=== PATIENT | female | born 1995 | race Caucasian/White ===

== ENCOUNTER 2021-12-06 08:42 | Outpatient (CLI) | payer OTHER | END 2021-12-06 23:59 | disposition home or self-care (01) | LOC: LAB.N 08:42 | PROVIDERS: ATTEND Physician Assistant Medical | DX: U07.1 COVID-19 (principal) ==

== ENCOUNTER 2024-02-04 18:25 | Outpatient (CLI) | payer OTHER ==
--- NOTE | 2024-02-05 13:03 | Ultrasound Report ---
PROCEDURE: OB Anatomy Scan INDICATIONS: SUPERVISION OF NORMAL OUTSIDE/PRIOR DATING DATA: Last menstrual period (LMP): 09/11/2023. LMP-based estimated date of delivery (BRITTANY): 06/17/2024. First dating scan (date and location): 11/20/2023. Estimated date of delivery (BRITTANY) from first dating scan: 06/22/2024. The below data below was generated using the clinical BRITTANY of 06/17/2024 TECHNIQUE: Real-time scanning was performed of the fetus, with image documentation and biometric measurements. COMPARISON: None. FINDINGS: General: A single living intrauterine gestation is present. Presentation: Variable Placenta: Placental position is posterior, without previa. Amniotic fluid index: 11 point cm, within normal limits for gestational age. heart rate: 140 beats per minute. Maternal cervical canal: 4.2 cm long; normal length is 2.5 cm or more. biometrics: Biparietal diameter: 4.6 cm 20 weeks 0 days with 19th percentile Head circumference: 17.5 cm 20 weeks 0 days 10th percentile Abdominal circumference: 14.6 cm 19 weeks 6 days 16 percentile Femur length: 3.4 cm 20 weeks 5 days 17th percentile Estimated gestational age from initial scan: 20 weeks 6 days Composite gestational age from present scan: 20 weeks 0 days Estimated weight and percentile: 339 g 16th percentile Measurement variability in biometric dating: +/- 10 days from 12-20 weeks gestation, +/- 2 weeks from 20-30 weeks gestation, +/- 3 weeks at 30 weeks gestation or later. Anatomic survey: Neuro: Ventricles are normal at less than 10 mm. Cisterna magna is normal at 3-11 mm. Cerebellum i s normal in size and morphology. Nuchal skin fold: Normal at less than 6 mm between 14 and 20 weeks gestational age. Face: Nose and lips, facial profile are normal. Spine: No evidence for spina bifida. Heart: 4-chambered heart is present, with normal ventricular outflow tracts. Diaphragm: Diaphragm is intact. Stomach: Left-sided stomach is present. Kidneys: No hydronephrosis. Normal is less than 5 mm in 2nd trimester, less than 7 mm in 3rd trimester. Cord: 3 vessel cord has orthotopic insertion. Bladder: Normal in size. Extremities: All 4 extremities are visualized. IMPRESSION: Single live intrauterine with gestational age today of 20 weeks 0 days. Anatomy is within normal limits. Note decreased percentiles for biometrics as well as weight. However, given early gestati onal., Short interval imaging follow-up is recommended to evaluate for potential developing macrosomi a. Reviewed by: Sapna Colon MD on 02/05/2024 1:01 PM PDT Approved by: Sapna Colon MD on 02/05/2024 1:01 PM PDT Station ID: [id number]
== END 2024-02-04 18:26 | disposition home or self-care (01) ==
LOC: DI 18:25
PROVIDERS: ATTEND Nurse Practitioner Obstetrics & Gynecology
DX: Z34.92 Encounter for supervision of normal pregnancy, unspecified, second trimester (principal)

== ENCOUNTER 2024-03-13 10:50 | Outpatient (CLI) | payer OTHER ==
[2024-03-13 12:02] LABS: HCT - HEMATOCRIT 32.1 % (37.0-47.0); HGB - HEMOGLOBIN 10.7 g/dL (12.0-16.0); MEAN CORPUSCULAR HEMOGLOBIN 31.3 pg (27.0-31.0); MEAN CORPUSCULAR HGB CONC 33.3 g/dL (32.0-36.0); MEAN CORPUSCULAR VOLUME 93.9 fL (81.0-99.0); MEAN PLATELET VOLUME 9.3 fL (7.9-10.8); RED BLOOD COUNT 3.42 10^6/uL (4.20-5.40); RED CELL DISTRIBUTION WIDTH 12.1 % (12.0-15.0); WHITE BLOOD COUNT 10.8 x10^3/uL (4.8-10.8)
== END 2024-03-13 10:51 | disposition home or self-care (01) ==
LOC: LAB 10:50
PROVIDERS: ATTEND Nurse Practitioner Obstetrics & Gynecology
DX: Z36.9 Encounter for antenatal screening, unspecified (principal)
CPT/HCPCS: 36415; 82950; 85027

== ENCOUNTER 2024-03-25 16:07 | Outpatient (CLI) | payer OTHER ==
[2024-03-25 16:26] VITALS: BP 119/69
--- NOTE | 2024-03-26 00:35 | PROVIDER PROGRESS NOTE ---
- HPI Chief Complaint: Decreased movement Current : Current EDU 06/17/24 Gestation 28 Weeks and 0 Days 1 Para 0 Vital Signs Temperature 36.9 C 03/25/24 16:19 Heart Rate 92 03/25/24 16:19 Respiratory Rate 16 03/25/24 16:19 Blood Pressure 119/69 03/25/24 16:19 Temperature 36.9 C 03/25/24 16:19 Heart Rate 92 03/25/24 16:19 Respiratory Rate 16 03/25/24 16:19 Blood Pressure 119/69 03/25/24 16:19 O2 Saturation If not protocol: Oxygen Flow, liters/minute - Procedures OB Procedure Performed: NST Diagnosis/Indication for NST: Decreased movement NST Procedure: NST Procedure Start Date 03/25/24 Start Time 16:18 Stop Time 16:53 Vibroacoustic Stimulation Used No Patient States Movement Yes: PT states increased movement throughout appt - Plan Plan: Lizzy is a 29yo @ 28.1wks gestation by LMP c/w 9.2wk U/S who presents to [facility] with concerns for decreased movement and generally "not feeling right". She has been sick with a cold since Saturday and states this morning she developed new onset nausea. After not feeling well last and change in symptoms this morning she felt very uneasy with the addition of decreased movement. She denies vaginal bleeding, leakage of fluid or contractions. She is supported by her today. NST reactive. FHR baseline 140s, moderate variability, + accels (15 x 15), no decels No contractions appreciated via tocometry Multiple episodes of movement palpated and audibly appreciated via monitor. Pt is also able to appreciate movement at present time and feels very reassured. Plan: Pt released home with precautions. Pt has emergency contact information. Encouraged increased fluid intake and rest as she recovers from viral illness. F/u for routine visit as schedule on Saturday. Pt verbalized understanding and agrees to above plan. She denies further questions or concerns at this time. FINAL DIAGNOSIS: Decreased movement
== END 2024-03-25 17:10 | disposition home or self-care (01) ==
LOC: WFO 16:07 → FBP 16:09 → WFO 17:10
PROVIDERS: ATTEND Nurse Practitioner Obstetrics & Gynecology
DX: O36.8130 Decreased fetal movements, third trimester, not applicable or unspecified (principal); O98.513 Other viral diseases complicating pregnancy, third trimester; B34.9 Viral infection, unspecified; Z3A.28 28 weeks gestation of pregnancy
CPT/HCPCS: 59025; 99213

== ENCOUNTER 2024-03-27 09:14 | Outpatient (CLI) | payer OTHER ==
[2024-03-27 09:44] LABS: GTT GLUCOSE,FASTING 77 mg/dL (74-109)
== END 2024-03-27 09:15 | disposition home or self-care (01) ==
LOC: LAB 09:14
PROVIDERS: ATTEND Nurse Practitioner Obstetrics & Gynecology
DX: O99.810 Abnormal glucose complicating pregnancy (principal)
CPT/HCPCS: 36415; 82951; 82952

== ENCOUNTER 2024-04-29 10:13 | Outpatient (CLI) | payer OTHER ==
[2024-04-29 10:55] LABS: BASOPHILS % (AUTO) 0.3 %; EOSINOPHILS # (AUTO) 0.2 10^3/uL (0.0-0.7); EOSINOPHILS % (AUTO) 3.1 %; HCT - HEMATOCRIT 32.2 % (37.0-47.0); HGB - HEMOGLOBIN 10.4 g/dL (12.0-16.0); LYMPHOCYTES # (AUTO) 1.2 10^3/uL (1.5-3.5); LYMPHOCYTES % (AUTO) 19.2 %; MEAN CORPUSCULAR HEMOGLOBIN 29.6 pg (27.0-31.0); MEAN CORPUSCULAR HGB CONC 32.3 g/dL (32.0-36.0); MEAN CORPUSCULAR VOLUME 91.7 fL (81.0-99.0); MEAN PLATELET VOLUME 9.5 fL (7.9-10.8); MONOCYTES # (AUTO) 0.4 10^3/uL (0.0-1.0); MONOCYTES % (AUTO) 6.1 %; NEUTROPHILS # (AUTO) 4.5 10^3/uL (1.5-6.6); NEUTROPHILS % (AUTO) 70.8 %; PLT - PLATELET COUNT 242 10^3/uL (130-450); RED BLOOD COUNT 3.51 10^6/uL (4.20-5.40); RED CELL DISTRIBUTION WIDTH 12.8 % (12.0-15.0); WHITE BLOOD COUNT 6.4 x10^3/uL (4.8-10.8)
[2024-04-29 11:15] LABS: ALBUMIN 3.5 g/dL (3.2-5.5); ALBUMIN/GLOBULIN RATIO 1.3 (1.0-2.2); BILIRUBIN,TOTAL 0.3 mg/dL (0.2-1.0); CALCIUM 8.8 mg/dL (8.5-10.3); CREATININE 0.4 mg/dL (0.6-1.3); POTASSIUM 3.9 mmol/L (3.5-4.5); TOTAL PROTEIN 6.2 g/dL (6.4-8.9)
[2024-04-29 11:17] LABS: CREATININE,URINE 12.1 mg/dL; TOTAL PROTEIN,URINE TIMED < 4 mg/dL
[2024-04-29 12:38] VITALS: BP 115/68
--- NOTE | 2024-04-29 15:10 | PROVIDER PROGRESS NOTE ---
- HPI Chief Complaint: Hypertension/PIH Current : Current EDU 06/17/24 Gestation 33 Weeks and 0 Days 1 Para 0 Vital Signs Temperature 36.8 C 04/29/24 10:28 Heart Rate 92 04/29/24 10:28 Respiratory Rate 18 04/29/24 10:28 Blood Pressure 115/68 04/29/24 10:28 Temperature 36.8 C 04/29/24 10:28 Heart Rate 92 04/29/24 10:28 Respiratory Rate 18 04/29/24 10:28 Blood Pressure 106/63 04/29/24 10:35 O2 Saturation If not protocol: Oxygen Flow, liters/minute - Procedures OB Procedure Performed: NST Diagnosis/Indication for NST: Gestational Hypertension NST Procedure: NST Procedure Start Date 04/29/24 Start Time 10:21 Stop Time 11:00 Vibroacoustic Stimulation Used No Patient States Movement Yes - Plan Plan: Wen is a 29yo @ 33.0wks gestation who presents to [facility] after phoning from home reporting elevated home blood pressure. She states she was feeling "weird" at work and had a co-worker take her blood pressure at work using a wrist cuff. The values were 140/102, 140/90 and 120/94. She reports a mild headache this morning which has since resolved. She denies visual disturbances or swelling. She denies vaginal bleeding, leakage of fluid or contractions. She reports +FM. NST reactive. FHR baseline 140s, moderate variability, + accels, no decels Contractions intermittently palpate mild with soft resting tone Pt does not appreciate contractions and states she thought they were baby's movements. Contractions decreased in frequency with rest and hydration. Pre-E labs all WNL Blood pressures all normotensive here. Recommended obtaining arm BP cuff rather than wrist cuff from work. Closely reviewed Pre-E warning s/sx and when to present. Pt has emergency contact number. F/u in the office for routine OB visit as scheduled or sooner PRN. Pt verbalized understanding and agrees to above plan. She denies further questions or concerns at this time. FINAL DIAGNOSIS: Elevated blood pressure without the diagnosis of hypertension <37wks gestation
== END 2024-04-29 11:45 | disposition home or self-care (01) ==
LOC: WFO 10:13 → FBP 10:15 → WFO 11:45
PROVIDERS: ATTEND Nurse Practitioner Obstetrics & Gynecology
DX: O99.891 Other specified diseases and conditions complicating pregnancy (principal); R03.0 Elevated blood-pressure reading, without diagnosis of hypertension; Z3A.33 33 weeks gestation of pregnancy
CPT/HCPCS: 36415; 59025; 80053; 82570; 84156; 85025; 99213

== ENCOUNTER 2024-06-09 21:01 | Inpatient (IN) ==
[2024-06-09] MEDS ORDERED: OXYTOCIN/SODIUM CHLORIDE 500 ML IV PRN (21:04)
[2024-06-09] MEDS ORDERED: miSOPROStoL 200 MCG TABLET PR PRN (21:04)
[2024-06-09] MEDS ORDERED: hydrALAZINE INJ 20 MG/ML VIAL IVP PRN (21:04)
[2024-06-09] MEDS ORDERED: SODIUM CHLORIDE FLUSH 0.9% 10 ML SYRINGE IVP PRN (21:04)
[2024-06-09] MEDS ORDERED: lidocaine 1% 20 ML MDV ID PRN (21:04)
[2024-06-09] MEDS ORDERED: NIFEdipine 10 MG CAPSULE PO PRN (21:04)
[2024-06-09] MEDS ORDERED: METHYLERGONOVINE 0.2 MG/ML VIAL IM PRN (21:04)
[2024-06-09] MEDS ORDERED: miSOPROStoL 200 MCG TABLET BC PRN (21:04)
[2024-06-09] MEDS ORDERED: TRANEXAMIC ACID IN NACL 1,000 MG/100 ML BAG IV PRN (21:04)
[2024-06-09] MEDS ORDERED: OXYTOCIN 10 UNIT/ML VIAL IM PRN (21:04)
[2024-06-09] MEDS ORDERED: TERBUTALINE 1 MG/ML VIAL SUBQ PRN (21:04)
[2024-06-09] MEDS ORDERED: LABETALOL 20 MG/4 ML SYRINGE IVP PRN ×3 (21:04)
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
[2024-06-09 21:59] LABS: BASOPHILS % (AUTO) 0.3 %; EOSINOPHILS # (AUTO) 0.2 10^3/uL (0.0-0.7); EOSINOPHILS % (AUTO) 2.4 %; HCT - HEMATOCRIT 32.8 % (37.0-47.0); HGB - HEMOGLOBIN 10.6 g/dL (12.0-16.0); LYMPHOCYTES # (AUTO) 1.5 10^3/uL (1.5-3.5); LYMPHOCYTES % (AUTO) 21.7 %; MEAN CORPUSCULAR HGB CONC 32.3 g/dL (32.0-36.0); MEAN CORPUSCULAR VOLUME 89.9 fL (81.0-99.0); MEAN PLATELET VOLUME 10.4 fL (7.9-10.8); MONOCYTES # (AUTO) 0.5 10^3/uL (0.0-1.0); MONOCYTES % (AUTO) 6.5 %; NEUTROPHILS # (AUTO) 4.9 10^3/uL (1.5-6.6); NEUTROPHILS % (AUTO) 68.8 %; PLT - PLATELET COUNT 265 10^3/uL (130-450); RED BLOOD COUNT 3.65 10^6/uL (4.20-5.40); RED CELL DISTRIBUTION WIDTH 13.2 % (12.0-15.0); WHITE BLOOD COUNT 7.1 x10^3/uL (4.8-10.8)
[2024-06-09 22:13] LABS: ALBUMIN 3.7 g/dL (3.2-5.5); ALBUMIN/GLOBULIN RATIO 1.2 (1.0-2.2); BILIRUBIN,TOTAL 0.4 mg/dL (0.2-1.0); CALCIUM 9.1 mg/dL (8.5-10.3); CREATININE 0.4 mg/dL (0.6-1.3); POTASSIUM 3.5 mmol/L (3.5-4.5); TOTAL PROTEIN 6.7 g/dL (6.4-8.9)
[2024-06-09] MEDS: SODIUM CHLORIDE FLUSH 0.9% 10 ML SYRINGE IVP SCH (22:56)
[2024-06-10] MEDS: miSOPROStoL 100 MCG TABLET BC SCH (00:03)
[2024-06-10] MEDS: LACTATED RINGERS 1,000 ML IV PRN (02:03)
--- NOTE | 2024-06-10 11:35 | PHARMACY PROGRESS NOTE ---
Best Possible Medication History Admit Date and Time: 06/09/242104 Processed by: Pharmacy (Medication reconciliation completed by certified pharmacy technician, Melia) Medications reviewed in ED?: No Medication History completed: Yes Patient Interview: Completed Secondary Source(s): Insurance records [facility] Statement: As the person ultimately responsible for medication therapy, providers are able to order a medication from an existing home medication list in [facility] via the "Reconcile Routine" prior to Confirmation of that medication by software support analyst. Such practice is discouraged except when the physician, in their clinical judgment, deems that a medical need exists for a medication without regard to previous use.
[2024-06-10] MEDS: fentaNYL 100 MCG/2 ML VIAL IVP PRN (18:34)
[2024-06-10] MEDS ORDERED: BUPIVACAINE 0.25% PF 10 ML VIAL ONE (19:40)
[2024-06-10] MEDS ORDERED: LIDOCAINE 2%-EPI 1:100000 20 ML MDV ONE (19:40)
[2024-06-10] MEDS ORDERED: ROPIVACAINE 0.2% 200 MG/100 ML BAG EP ONE (19:40)
[2024-06-10] MEDS: LACTATED RINGERS 500 ML IV ONE (20:10)
[2024-06-10] MEDS ORDERED: PHENYLEPHRINE HCL 0.5 MG/5 ML AMPULE ONE (20:27)
[2024-06-10] MEDS ORDERED: ePHEDrine 50 MG/ML VIAL IVP ONE (20:27)
--- NOTE | 2024-06-10 20:59 | PROVIDER PROGRESS NOTE ---
Labor Progress Note Labor Progress Note Labor Progress Note/Additional Text: NOTE FOR 1740 on 06/10/2024 S: Breathing through contractions with the support of her and service support representative who are at the bedside. She is coping well and states the contractions are increasing in both frequency and intensity at this time. O: FHR baseline 120s, moderate variability, + accels, no decels Contractions palpate mild to moderate every 3 minutes with soft resting tone SVE 2/70/-1, midposition, medium consistency, vertex. SROM occurred at 1400 and was noted to be a moderate amount of clear fluid S/p 4 doses of 50mcg BC misoprostol for effective pre-induction cervical ripening A: 29yo @ 39.0wks gestation Suspected IUGR FHR Category I GBS negative P: Discontinue misoprostol now and initiate expectant management for labor course at this time. Intermittent heart rate auscultation Jacuzzi PRN. Nitrous oxide PRN. Epidural per maternal request. Anticipate .
--- NOTE | 2024-06-10 21:07 | ANESTHESIA PROCEDURE NOTE ---
Pre-Anesthesia VS, & Labs Diagnosis Surgical Diagnosis:: 38.6 weeks, with IUGR, induction desires labor epidural Procedure Procedure: placement of labor epidural Vitals Vital Signs: Temp Pulse Resp BP Pulse Ox 36.3 C L 91 H 15 115/77 99 06/10/24 06:00 06/10/24 06:00 06/10/24 06:00 06/10/24 06:00 06/09/24 21:11 Height (in): 5 ft 4 in Weight (kg): 65 kg Body Mass Index: 24.5 BMI Classification: Normal NPO Last Fluid Intake: currently sips Is Patient ?: Yes Lab Results Current Lab Results: Laboratory Tests 06/09/24 22:10: Blood Type Recheck B POSITIVE 06/09/24 21:38: WBC 7.1, RBC 3.65 L, Hgb 10.6 L, Hct 32.8 L, MCV 89.9, MCH 29.0, MCHC 32.3, RDW 13.2, Plt Count 265, MPV 10.4, Neut # (Auto) 4.9, Lymph # (Auto) 1.5, Lane # (Auto) 0.5, Eos # (Auto) 0.2, Baso # (Auto) 0.0, Absolute Nucleated RBC 0.00, Nucleated RBC % 0.0, Sodium 135, Potassium 3.5, Chloride 106, Carbon Dioxide 21, Anion Gap 8.0, BUN 6, Creatinine 0.4 L, Estimated GFR (MDRD) 191, Glucose 80, Calcium 9.1, Total Bilirubin 0.4, AST 15, ALT 7 L, Alkaline Phosphatase 210 H, Total Protein 6.7, Albumin 3.7, Globulin 3.0, Albumin/Globulin Ratio 1.2, Blood Type B POSITIVE, Antibody Screen NEGATIVE Lab results reviewed: Yes 06/09/24 21:38 06/09/24 21:38 Meds/Allgy Home Medications Ambulatory Orders Medication Instructions Recorded Confirmed vitamins no.159-iron 1 tab PO DAILY 05/19/24 06/10/24 fumarate 28 mg-folic acid 800 mcg tablet ( Vitamin) Allergies Allergies Allergy/AdvReac Type Severity Reaction Status Date / Time No Known Drug Allergies Allergy Verified 05/19/24 09:23 [facility] Medical History Medical History Anxiety associated with depression Family History Family History (Updated 05/19/24 @ 09:30 by Анна Mckinney MA) Maternal grandfather High blood pressure CAD (coronary artery disease) Mother Depressed Migraines Maternal grandmother Diabetes CVA (cerebral vascular accident) Sister Depressed Father Anxiety Social History Social History Smoking Status: Former smoker If you are a former smoker, when did you quit? (Date/Year): 10/04/2023 Do you dip or chew tobacco?: No Patient requests smoking cessation consult: No Substance Use: denies use POLST Patient has POLST: No Anesthesia Exam (Expanded) Exam General: Alert Dental: WNL Mouth Openin Fingerbreadth Neck Mobility: Normal Mallampati classification: II Thyromental Distance: 4-6 cm Respiratory: Lungs clear Cardiovascular: Regular rate Plan Plan Anesthesia Type: Epidural Consent for Procedure(s) Verified and Reviewed: Yes Code Status: Attempt Resuscitation ASA Classification ASA classification: 1-Healthy patient Is this case an emergency?: No
[2024-06-10] MEDS ORDERED: ONDANSETRON 4 MG/2 ML VIAL IVP PRN (21:10)
[2024-06-10] MEDS ORDERED: NALOXONE 0.4 MG/ML VIAL IVP PRN (21:10)
[2024-06-10] MEDS ORDERED: diphenhydrAMINE INJ 50 MG/ML VIAL IVP PRN (21:10)
[2024-06-10] MEDS ORDERED: ePHEDrine 50 MG/ML VIAL IVP PRN (21:10)
[2024-06-10] MEDS ORDERED: METOCLOPRAMIDE 10 MG/2 ML VIAL IVP PRN (21:10)
[2024-06-10] MEDS ORDERED: NALBUPHINE 10 MG/ML AMP IVP PRN (21:10)
[2024-06-10] MEDS ORDERED: ROPIVACAINE 0.2% 200 MG/100 ML BAG EP PRN (21:11)
[2024-06-10] MEDS: OXYTOCIN/SODIUM CHLORIDE 500 ML IV PRN (23:50)
[2024-06-11] MEDS ORDERED: SIMETHICONE CHEW 80 MG TABLET PO PRN (00:44)
--- NOTE | 2024-06-11 00:56 | DELIVERY NOTE ---
Delivery Note Delivery Comments (Free Text/Narrative) Delivery Comments (Free Text/Narrative): Labor: This 29yo @ 39.0 wks gestation presented to [facility] for induction of labor secondary to suspected IUGR by growth ultrasound at 34wks which measured 13th percentile. Cervix was closed/50/-2 and vertex. FHR demonstrated Category I pattern with intermittent periods of Category II which occurred most prevalently following placement of epidural and subsequent blood pressure drop. Overall FHR maintained moderate variability and remained reassuring throughout labor. Normal labor course. SROM occurred @ 1355 and was noted to be a moderate amount of clear fluid. She progressed to c/c/+2 at 2320. : Normal SVB of viable male infant on 06/10/2024 @ 2343. Nucal. The was placed on maternal abdomen, stimulated, dried, and placed skin to skin. 's were 8/9at 1 and 5 min respectively. Pitocin administered via IV for hemostasis. The umbilical cord was allowed to stop pulsating at which time it was doubly clamped by CNM and cut by FOB. Cord blood was obtained. 3VC. Fundal massage and gentle cord traction applied for active management of the third stage. Placenta delivered spontaneously and intact at 2358. EBL 300mL. Fourth stage: Uterine fundus firm and there is no excessive bleeding. The perineum, vagina, and cervix were inspected and found to have a 1st degree perineal laceration which was repaired using a 3-[address]-1 needle, in standard fashion and under sterile conditions. Vaginal examination following repair was performed. Tissues well approximated. initiated. Both mother and baby were left in stable condition.
[2024-06-11] MEDS: IBUPROFEN 800 MG TABLET PO PRN (01:00)
[2024-06-11] MEDS: ACETAMINOPHEN 500 MG TABLET PO PRN (01:01)
[2024-06-11] MEDS: DOCUSATE SODIUM 100 MG CAPSULE PO SCH (09:00)
[2024-06-11] MEDS: HYDROCORTISONE 1% CREAM 28 GM TUBE TOP PRN (09:00)
[2024-06-11] MEDS: WITCH HAZEL/GLYCERIN 1 PAD TOP PRN (09:17)
--- NOTE | 2024-06-11 14:10 | PROVIDER PROGRESS NOTE ---
Subjective Subjective Subjective: S: Bonding well with baby. without difficulty. Pain is well controlled with oral medications. Bleeding decreased and is light. She is urinating without difficulty. Has not yet had BM. Jerome is supportive at the bedside. O: Heart RRR w/o M/G/R, lungs CTAB, abdomen soft and nontender with fundus firm at U, perineum intact, light lochia rubra, bilateral LE's trace edema A: 29yo -->P1 PPD#1 s/p TSVD viable male Normal recovery P: Continue routine care and medications. Evaluate for discharge home tomorrow Current Medications Current Medications Current Medications: Current Medications Generic Name Dose Route Start Last Admin Trade Name Freq PRN Reason Stop Dose Admin Acetaminophen 1,000 mg 06/11/24 00:44 06/11/24 08:59 Acetaminophen 500 Mg Tablet PO 1,000 mg Q8HR PRN Administration Mild Pain or Fever>38C(100.4F) Diphenhydramine HCl 12.5 - 25 mg 06/10/24 21:10 Diphenhydramine Inj 50 Mg/Ml Vial IVP Q6HR PRN ITCHING Docusate Sodium 100 mg 06/11/24 09:00 06/11/24 09:00 Docusate Sodium 100 Mg Capsule PO 100 mg BID JUAN DAVID Administration Ephedrine Sulfate 5 mg 06/10/24 21:10 Ephedrine 50 Mg/Ml Vial IVP Q5M PRN For SBP<100;give until SBP>100 Fentanyl 50 mcg 06/09/24 21:04 06/10/24 18:34 Fentanyl 100 Mcg/2 Ml Vial IVP 50 mcg Q1H PRN Administration Severe Pain (score 7-10) Hydralazine HCl 5 - 10 mg 06/09/24 21:04 Hydralazine Inj 20 Mg/Ml Vial IVP Q20M PRN SBP> or= 160 OR DBP> or= 110 Protocol Hydrocortisone 1 applic 06/11/24 00:44 06/11/24 09:00 Hydrocortisone 1% Cream 28 Gm Tube TOP 1 tube QID PRN Administration PERINEAL REPAIR Lactated Ringer's 500 mls @ 999 mls/hr 06/09/24 21:04 06/10/24 10:47 Lr IV Infused PRN PRN Infusion distress Oxytocin/Sodium Chloride 500 mls @ 999 mls/hr 06/09/24 21:04 Pitocin/Sodium Chloride IV PRN PRN POST- HEMORR PREVENTION Protocol 999 MILLIUNIT/MIN Tranexamic Acid 1,000 mg in 100 mls @ 600 mls/hr 06/09/24 21:04 Tranexamic 1,000 Mg/100ml-Nacl IV Q30M PRN EBL >1200mL and within 3hr Ropivacaine 200 mg in 100 mls @ 0 mls/hr 06/10/24 21:11 Naropin 0.2% EP PRN PRN PAIN Protocol Per Protocol Oxytocin/Sodium Chloride 500 mls @ 999 mls/hr 06/11/24 00:44 06/10/24 23:50 Pitocin/Sodium Chloride IV 999 milliunit/min PRN PRN 999 mls/hr POST- HEMORR PREVENTION Administration Protocol 999 MILLIUNIT/MIN Ibuprofen 800 mg 06/11/24 00:44 06/11/24 08:59 Ibuprofen 800 Mg Tablet PO 800 mg Q8HR PRN Administration Moderate Pain (Level 4-6) Labetalol HCl 20 - 80 mg 06/09/24 21:04 Labetalol 20 Mg/4 Ml Syringe IVP Q10M PRN SBP> or= 160 OR DBP> or= 110 Protocol Labetalol HCl 20 mg 06/09/24 21:04 Labetalol 20 Mg/4 Ml Syringe IVP .ONCE PRN SBP> or= 160 OR DBP> or= 110 Protocol Labetalol HCl 20 - 40 mg 06/09/24 21:04 Labetalol 20 Mg/4 Ml Syringe IVP Q10M PRN SBP> or= 160 OR DBP> or= 110 Protocol Lidocaine HCl 20 ml 06/09/24 21:04 Lidocaine 1% 20 Ml Mdv ID 06/12/24 21:05 .ONCE PRN PERINEAL REPAIR Methylergonovine Maleate 0.2 mg 06/09/24 21:04 Methylergonovine 0.2 Mg/Ml Vial IM .ONCE PRN Hemorrhage Metoclopramide HCl 10 mg 06/10/24 21:10 Metoclopramide 10 Mg/2 Ml Vial IVP Q6HR PRN Nausea / Vomiting Misoprostol 600 mcg 06/09/24 21:04 Misoprostol 200 Mcg Tablet BC .ONCE PRN Hemorrhage Misoprostol 800 mcg 06/09/24 21:04 Misoprostol 200 Mcg Tablet KS .ONCE PRN Hemorrhage Misoprostol 50 mcg 06/10/24 00:00 06/10/24 18:47 Misoprostol 100 Mcg Tablet BC Not Given Q4H JUAN DAVID Nalbuphine HCl 2.5 - 5 mg 06/10/24 21:10 Nalbuphine 10 Mg/Ml Amp IVP Q4H PRN ITCHING Naloxone HCl 0.1 mg 06/10/24 21:10 Naloxone 0.4 Mg/Ml Vial IVP Q2M PRN RR<8 Nifedipine 10 - 20 mg 06/09/24 21:04 Nifedipine 10 Mg Capsule PO Q20M PRN SBP> or= 160 OR DBP> or= 110 Protocol Ondansetron HCl 4 mg 06/10/24 21:10 Ondansetron 4 Mg/2 Ml Vial IVP Q6HR PRN Nausea / Vomiting Oxytocin 10 unit 06/09/24 21:04 Oxytocin 10 Unit/Ml Vial IM .ONCE PRN Step One if no IV access. Simethicone 80 mg 06/11/24 00:44 Simethicone Chew 80 Mg Tablet PO TID PRN Gas Sodium Chloride 10 ml 06/09/24 21:04 Sodium Chloride Flush 0.9% 10 Ml Syringe IVP PRN PRN NEEDED PER PROVIDER ORDERS Sodium Chloride 10 ml 06/09/24 22:00 06/10/24 09:00 Sodium Chloride Flush 0.9% 10 Ml Syringe IVP 5 ml Q8H JUAN DAVID Administration Terbutaline Sulfate 0.25 mg 06/09/24 21:04 Terbutaline 1 Mg/Ml Vial SUBQ .ONCE PRN Tachystole Witch Iliana/Glycerin 1 pad 06/11/24 00:44 06/11/24 09:17 Witch Iliana/Glycerin 1 Pad TOP 1 pad PRN PRN Administration PERINEAL REPAIR Objective Vital Signs/Intake & Output Vital Signs: Vital Signs x48h Temp Pulse Resp BP Pulse Ox 06/11/24 09:03 72 17 115/69 100 06/11/24 09:00 36.5 C Intake & Output: Intake & Output 06/09/24 06/10/24 06/11/24 06/12/24 05:59 05:59 05:59 05:59 Intake Total 1650 / 1650 Output Total 1000 / 1000 Balance 650 / 650 Weight (kg) 65.771 kg 65 kg Lab Results 06/09/24 21:38 06/09/24 21:38
[2024-06-12 06:31] VITALS: O2SAT 100
--- NOTE | 2024-06-12 10:39 | Discharge Summary ---
Discharge Summary Admit Date: 06/09/24 Discharge Date: 06/12/24 HOSPITAL COURSE Hospital Course: Date of Admission: Date of Discharge: 06/12/2024 Diagnosis on Admission: 1. 29yo @ 38.6wks gestation 2. Pre-induction cervical ripening with misoprostol in anticipation for induction of labor 3. FHR Category I 4. GBS negative Diagnosis on Discharge: 1. 29yo PPD#2 s/p TSVD viable male infant 2. 3. Normal recovery Brief History: She is a patient of [facility] who presented on 06/09/2024 for pre-induction cervical ripening with misoprostol in anticipation for induction of labor. She received 4 total doses of 50mcg BC misoprostol at which time she progressed into spontaneous labor. SROM occurred and was noted to be a moderate amount of clear fluid. Epidural was placed per maternal request. She progressed to spontaneously deliver a viable male on 06/10/2024 @ 2343. Apgars were 8/9 at 1 and 5 minutes respectively. She was noted to have a 1st degree perineal laceration which was repaired using a 3-[address]-1 needle in standard fashion and under sterile conditions. EBL 300mL. She has been doing well in her course. She is ambulating and tolerating a regular diet. She is urinating without difficulty and her lochia is normal. Her pain is well controlled with oral medications. She will be discharged home today on day #2 with instructions to continue taking her vitamin while and to continue taking ibuprofen and tylenol over the counter as needed for pain management. She intends to follow up with myself in 1 week for routine visit or sooner if needed. She has been given precautions to call if she has any worsening fevers, chills, abdominal pain, increased vaginal bleeding or foul smelling vaginal lochia. Physical exam: Heart RRR w/o M/G/R, lungs CTAB, abdomen soft and nontender, fundus firm at U-1, bilateral LE's trace edema, mood is good. ALLERGIES Allergies Allergy/AdvReac Type Severity Reaction Status Date / Time No Known Drug Allergies Allergy Verified 05/19/24 09:23 MEDICATIONS Ambulatory Orders Medication Instructions Recorded Confirmed vitamins no.159-iron 1 tab PO DAILY 05/19/24 06/10/24 fumarate 28 mg-folic acid 800 mcg tablet ( Vitamin) LABS 06/09/24 21:38 06/09/24 21:38 Discharge Plan Discharge Patient Disposition: 01 Home, Self Care Prescriptions: Continued Vitamin 28 mg iron- 800 mcg tablet 1 tab PO DAILY Print Language: Mauritian Patient Instructions: Vaginal After Follow-up Care: Aaron Way MD [Primary Care Provider] -
--- NOTE | 2024-06-12 10:43 | Labor Flowsheet ---
Labor Flowsheet Datetime Report Generated by CPN: 06/12/2024 10:43 Datetime: 06/12/2024 07:49 VITAL SIGNS NBP Sys/Brittney/Mean (mmHg): 114 : 74 : 83 Pulse: 73 Datetime: 06/11/2024 04:17 Temperature Route: Oral Datetime: 06/11/2024 01:37 Respirations: 16 Temperature (C): 36.7 PAIN Pain Scale: 2 Datetime: 06/10/2024 23:58 Stage of : Recovery Datetime: 06/10/2024 23:52 LaborFlag: Labor Datetime: 06/10/2024 23:40 UTERINE ACTIVITY Monitor Mode: Palpation Frequency (min): 1-3 Quality: Strong Duration (sec): 50 Pattern: Normal: <= 5 Contractions in 10 Minutes Resting Tone (Palpate): Relaxed FHR Baseline Rate : 130 Variability: Marked >25 bpm Accelerations: 15X15 Decelerations: Variable Datetime: 06/10/2024 23:25 Communication Comments: pushing effectively Datetime: 06/10/2024 23:20 VAGINAL EXAM Dilatation (cm): 10.0 Station: 2 Exam by: Montez Datetime: 06/10/2024 23:07 Category: Category II Datetime: 06/10/2024 23:06 COMMUNICATION Communication: RN at Bedside; Provider at Bedside Datetime: 06/10/2024 22:34 Amniotic Fluid Color: Clear Datetime: 06/10/2024 22:33 Patient Position/Activity: Left Lateral Datetime: 06/10/2024 22:23 Vaginal Exam Comments: attempte push Datetime: 06/10/2024 22:00 ASSESSMENT A Monitor Mode: External US Datetime: 06/10/2024 21:58 Provider Notified (Name): A Montez Notification Reason: Status Update; Labor Status Datetime: 06/10/2024 21:57 Effacement (%): 100 Vaginal Bleeding: Normal Show Cervix, Consistency: Soft Cervix, Position: Anterior Datetime: 06/10/2024 20:38 Membrane Status: Ruptured Amniotic Fluid Amount: Small Amniotic Fluid Odor: Normal I/O Interventions: Morales Cath Inserted Datetime: 06/10/2024 20:33 FHR Baseline Changes: Bradycardia Membranes Ruptured Date/Time: 06/10/2024 13:54 Datetime: 06/10/2024 20:30 Medication Comments: S.Montgomer BIZTALK ARCHITECT at BS ephedrine 15mg given to increase bp Anesthesia Level Check: T11 Datetime: 06/10/2024 20:24 Actions for Decelerations: Side to Side; IV Bolus Datetime: 06/10/2024 20:10 Anesthesia Comments: bolus Datetime: 06/10/2024 20:05 SpO2 (%): 97 Datetime: 06/10/2024 20:00 Epidural Procedure: Cath Placed Datetime: 06/10/2024 19:43 PROCEDURE TIME OUT Procedure Verify: Correct Patient Identity; Correct Side and Site are Marked; Accurate Procedure Co nsent Form; Agreement on Procedure to be Done; Correct Patient Position; Relevant Images and Results are Properly Labeled and Displayed; Addressed Need to Administer Antibiotics or Fluids for Irrigation ; Safety Precautions Based on Patient History or Medication Use ANESTHESIA Anesthesia Plans: Epidural Epidural Positioning: Sitting Datetime: 06/10/2024 19:08 Monitor Interventions for UA: [place] Adjusted Datetime: 06/10/2024 18:50 Pain Assessment Comments: Pt using nitrous Datetime: 06/10/2024 18:34 MEDICATIONS Analgesics/Sedatives: Fentanyl (mcg) @ 50 mcg Datetime: 06/10/2024 18:12 Contraction Comments: per palpation Comments: Pt requesting IA, doppler not available and EFM used Datetime: 06/10/2024 18:08 Pain Coping: Crying Comfort Measures: Breathing/Relaxation; Coaching; Family Support; [employer] Mdm Developer Support Datetime: 06/10/2024 17:17 Patient Care Comments: Pt laboring on toilet Datetime: 06/10/2024 15:17 Pain Relief Measures: Comfort Measures Datetime: 06/10/2024 14:56 Pain Presence: Intermittent Pain Type: Cramping; Contraction Pain Location: Abdomen; Back Datetime: 06/10/2024 13:54 Membranes Rupture Method: Spontaneous Datetime: 06/10/2024 13:29 Monitor Interventions for FHR: Ultrasound Adjusted Datetime: 06/10/2024 11:17 PATIENT CARE IV/Blood Work: IV Saline Locked Datetime: 06/10/2024 09:51 Cervical Ripening Agents: Cytotec @ Datetime: 06/10/2024 08:00 MATERNAL ASSESSMENT Level of Consciousness: Alert DTR's/Clonus: DTRs 1+; No Clonus Headache: Denies Breath Sounds, Left: Clear and Equal Breath Sounds, Right: Clear and Equal Nausea/Vomiting: Denies RUQ Epigastric Pain: Denies
== END 2024-06-12 10:15 | disposition home or self-care (01) | DRG 807 ==
LOC: WFO 21:01 → FBP 21:02
PROVIDERS: ADMIT Nurse Practitioner Obstetrics & Gynecology; ATTEND Nurse Practitioner Obstetrics & Gynecology

== ENCOUNTER 2025-06-12 07:56 | Inpatient (IN) ==
[2025-06-12] MEDS: SODIUM CHLORIDE FLUSH 0.9% 10 ML SYRINGE IVP SCH (08:30)
[2025-06-12] MEDS ORDERED: CARBOPROST TROMETHAMINE 250 MCG/ML VIAL IM PRN (08:59)
[2025-06-12] MEDS ORDERED: METHYLERGONOVINE 0.2 MG/ML VIAL IM PRN (08:59)
[2025-06-12] MEDS ORDERED: fentaNYL 100 MCG/2 ML VIAL IVP PRN (08:59)
[2025-06-12] MEDS ORDERED: TRANEXAMIC ACID IN NACL 1,000 MG/100 ML BAG IV PRN (08:59)
[2025-06-12] MEDS ORDERED: OXYTOCIN/SODIUM CHLORIDE 500 ML IV PRN ×2 (08:59→18:41)
[2025-06-12] MEDS ORDERED: hydrALAZINE INJ 20 MG/ML VIAL IVP PRN ×3 (08:59→18:41)
[2025-06-12] MEDS ORDERED: OXYTOCIN 10 UNIT/ML VIAL IM PRN (08:59)
[2025-06-12] MEDS ORDERED: DOCUSATE SODIUM 100 MG CAPSULE PO PRN (08:59)
[2025-06-12] MEDS ORDERED: METOCLOPRAMIDE 10 MG TABLET PO PRN (08:59)
[2025-06-12] MEDS ORDERED: CALCIUM CARBONATE CHEW 500 MG TABLET PO PRN ×2 (08:59→18:50)
[2025-06-12] MEDS ORDERED: SODIUM CHLORIDE FLUSH 0.9% 10 ML SYRINGE IVP PRN (08:59)
[2025-06-12] MEDS ORDERED: ONDANSETRON ODT 4 MG TABLET PO PRN (08:59)
[2025-06-12] MEDS ORDERED: TERBUTALINE 1 MG/ML VIAL SUBQ PRN (08:59)
[2025-06-12] MEDS ORDERED: ACETAMINOPHEN 500 MG TABLET PO PRN (08:59)
[2025-06-12] MEDS ORDERED: LABETALOL 20 MG/4 ML SYRINGE IVP PRN ×5 (08:59→18:41)
[2025-06-12 09:23] LABS: ALT ALANINE AMINOTRANSFERASE 8.0 IU/L (10-60); AST ASPARTATE AMINOTRANSFERASE 16.0 IU/L (10-42); BUN - BLOOD UREA NITROGEN 8.0 mg/dL (6-20); CARBON DIOXIDE - CO2 22.0 mmol/L (21-32); CREATININE 0.4 mg/dL (0.6-1.3); GFR - MDRD 190.0 (>89)
[2025-06-12 09:36] LABS: HCT - HEMATOCRIT 33.8 % (37.0-47.0); HGB - HEMOGLOBIN 10.9 g/dL (12.0-16.0); MEAN PLATELET VOLUME 10.7 fL (7.9-10.8); NRBC ABSOLUTE COUNT (AUTO) 0.00 x10^3/uL; NUCLEATED RED BLOOD CELLS AUTO 0.0 /100WBC; PLT - PLATELET COUNT 244 10^3/uL (130-450); RED CELL DISTRIBUTION WIDTH 13.0 % (12.0-15.0)
[2025-06-12] MEDS: LACTATED RINGERS 1,000 ML IV PRN (09:59)
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
[2025-06-12 10:05] LABS: ESTIMATED AVERAGE GLUCOSE 105 mg/dL (70-100); HEMOGLOBIN A1c% 5.3 % (4.27-6.07)
--- OUTSIDE RECORDS SUMMARY | 2025-06-12 10:30 | EXTERNAL MEDICAL SUMMARY RPT | Continuity of Care Document ---
Author Organization [facility] Address [address] [place] [id number] Phone Problems date description facility 2025-03-11 13:06 Abnormal glucose complicating p [email or web address] 2025-03-14 10:01 Abnormal glucose complicating p [email or web address] 2025-03-15 00:01 Abnormal glucose complicating p [email or web address] 2025-03-25 14:11 Encounter for immunization [facility] 2025-03-28 11:37 Gestational diabetes mellitus in , diet controlled [facility] 2025-03-29 08:42 Encounter for immunization [email or web address] 2025-03-29 08:43 Gestational diabetes mellitus in , diet controlled [facility] 2025-03-29 08:43 Encounter for immunization [email or web address] 2025-03-29 08:43 27 weeks gestation of 5 [employer] 2025-04-02 09:47 Gestational diabetes mellitus in , diet controlled [facility] 2025-04-02 09:51 Gestational diabetes mellitus in , diet controlled [facility] 2025-04-02 11:21 Gestational diabetes mellitus in , diet controlled [facility] 2025-04-06 19:56 Gestational diabetes mellitus in , diet controlled [facility] 2025-04-07 00:03 Gestational diabetes mellitus in , diet controlled [facility] 2025-05-07 12:03 Gestational diabetes mellitus in , diet controlled [email or web address] 2025-05-13 15:19 Other specified noninflammatory disorders of vagina [email or web address] 2025-05-13 15:19 Encounter for screen ing for infections with a predominantly sexual mode of transmission [email or web address] 2025-05-13 15:19 Encounter for screeni ng for Streptococcus B [email or web address] 2025-05-13 15:20 False labor before 3 7 completed weeks of gestation, unspecified [email or web address] 2025-05-13 15:20 Encounter for screeni ng for Streptococcus B [facility] 2025-05-13 15:48 False labor before 3 7 completed weeks of gestation, unspecified trimester [facility] 2025-05-13 15:48 Encounter for screeni ng for Streptococcus B [facility] 2025-05-14 00:05 Other specified noninflammatory disorders of vagina [facility] 2025-05-14 00:05 False labor before 3 7 completed weeks of gestation, unspecified trimester [email or web address] 2025-05-14 00:05 Encounter for screen ing for infections with a predominantly sexual mode of transmission [email or web address] 2025-05-14 00:05 Encounter for screeni ng for Streptococcus B [facility] 2025-05-17 06:54 False labor before 3 7 completed weeks of gestation, unspecified trimester [email or web address] 2025-05-17 06:54 Encounter for screeni ng for Streptococcus B [facility] 2025-05-17 08:25 False labor before 3 7 completed weeks of gestation, unspecified trimester [facility] 2025-05-17 08:25 False labor before 3 7 completed weeks of gestation, third trimester [facility] 2025-05-17 08:25 Encounter for screeni ng for Streptococcus B [facility] 2025-05-17 08:26 False labor before 3 7 completed weeks of gestation, unspecified trimester [email or web address] 2025-05-17 08:26 False labor before 3 7 completed weeks of gestation, third trimester [email or web address] 2025-05-17 08:26 Encounter for screen ing for infections with a predominantly sexual mode of transmission [email or web address] 2025-05-17 08:26 Encounter for screeni ng for Streptococcus B [facility] 2025-05-17 08:26 34 weeks [facility] 2025-05-17 10:50 Perianal venous thrombosis [facility] 2025-05-19 06:14 Encounter for superv ision of other normal , third trimester [email or web address] 2025-05-19 08:53 False labor before 3 7 completed weeks of gestation, unspecified trimester [email or web address] 2025-05-19 08:53 Other specified dise ases and conditions complicating [facility] 2025-05-19 08:53 Encounter for screeni ng for Streptococcus B [facility] 2025-05-21 06:26 False labor before 3 7 completed weeks of gestation, third trimester [email or web address] 2025-05-24 08:16 Gestational diabetes mellitus in , diet controlled [facility] 2025-05-24 08:16 35 weeks gestation of [facility] 2025-06-07 08:39 Encounter for superv ision of other normal , third trimester [facility] 2025-06-07 08:39 37 weeks [facility] Results/Labs test date facility value unit notes Result panel 1 GLUCOSE TOLERANCE 3HR 2025-03-14 10:16 [facility] (missing) (missing) GLU FAST 75 mg/dL Col Time:1019 GLU 1H 172 mg/dL Col Time:1119 GLU 2H 174 mg/dL Col Time:1220 GLU 3H 143 mg/dL Col Time:1319 DOSE 100 g Col Time:1019 Glucose Concentration Guidelines Fasting <95 mg/dL 1 hr post challenge <180 mg/dL 2 hr post challenge <155 mg/dL 3 hr post challenge <140 mg/dL Glucose concentration greater than or equal to these valuesat TWO or more time points is a positive test. Reference: [facility] Result panel 2 GROUP B STREP PCR 2025-05-13 15:19 [email or web address] NEGATIVE (missing) (missing) NEISSERIA GONORRHOEAE DNA 2025-05-13 15:19 [employer] NEGATIVE (missing) (missing) BACTERIAL VAGINOSIS DNA 2025-05-13 15:19 [email or web address] NEGATIVE (missing) Detection of marker combinations related to normal vaginal roxanne. ZULEYKA GLABRATA DNA 2025-05-13 15:19 [email or web address] NEGATIVE (missing) No Zuleyka glabrata Detected Z[facility] GROUP DNA 2025-05-13 15:19 [email or web address] NEGATIVE (missing) No Zuleyka group Detected (Zuleyka albicans and/or Zuleyka tropicalis and/or Zuleyka parapsilosis and/or Zuleyka dubliniensis) ZULEYKA KRUSEI DNA 2025-05-13 15:19 [email or web address] NEGATIVE (missing) No Zuleyka krusei Detected TRICHOMONAS VAGINALIS DNA 2025-05-13 15:19 [facility] NEGATIVE (missing) No Trichomonas vaginalis Detected CHLAMYDIA TRACHOMATIS DNA 2025-05-13 15:19 [facility] NEGATIVE (missing) VAGINAL TRICHOMONAS VAGINALIS DNA 2025-05-13 15:19 [facility] TNP (missing) (missing) Result panel 3 WBC,URINE 2025-05-13 17:45 [facility] 0-3 /hpf (missing) UROBILINOGEN,URI NE 2025-05-13 17:45 [facility] 0.2 (NORMAL) e.u./dl (missing) SPECIFIC GRAVITY,URINE 2025-05-13 17:45 [facility] 1.015 (missing) (missing) KETONES,URINE (UA) 2025-05-13 17:45 [facility] 15 mg/dl (missing) PH,URINE 2025-05-13 17:45 [facility] 6.5 ph (missing) CLARITY,URINE 2025-05-13 17:45 [facility] CLEAR (missing) (missing) SQUAMOUS EPITHELIAL CELL,UR 2025-05-13 17:45 [facility] FEW Squamous (missing) (missing) BACTERIA,URINE 2025-05-13 17:45 [facility] Few /hpf (missing) LEUKOCYTE ESTERASE, URINE 2025-05-13 17:45 [facility] NEGATIVE (missing) (missing) NITRITE,URINE 2025-05-13 17:45 [facility] NEGATIVE (missing) (missing) OCCULT BLOOD,URINE 2025-05-13 17:45 [facility] NEGATIVE (missing) (missing) BILIRUBIN,URINE 2025-05-13 17:45 [facility] NEGATIVE (missing) Bilirubin can be influenced by color interference. Please correlate positive results with clinical presentation GLUCOSE, URINE (UA) 2025-05-13 17:45 [facility] NEGATIVE mg/dl (missing) PROTEIN,URINE 2025-05-13 17:45 [facility] NEGATIVE mg/dl (missing) UR CULTURE IF IND 2025-05-13 17:45 [facility] NOT INDICATED (missing) (missing) RBC,URINE 2025-05-13 17:45 [facility] None Seen /hpf (missing) COLOR,URINE 2025-05-13 17:45 [facility] YELLOW (missing) URINE CLEAN CATCH Result panel 4 NUCLEATED RED BLOOD CELLS AUTO 2025-06-12 08:30 [facility] 0.0 /100wbc (missing) BASOPHILS # (AUTO) 2025-06-12 08:30 [facility] 0.0 10 3/ul (missing) NRBC ABSOLUTE COUNT (AUTO) 2025-06-12 08:30 [facility] 0.00 x10 3/ul (missing) EOSINOPHILS # (AUTO) 2025-06-12 08:30 [facility] 0.2 10 3/ul (missing) MONOCYTES # (AUTO) 2025-06-12 08:30 [facility] 0.4 10 3/ul (missing) BILIRUBIN,TOTAL 2025-06-12 08:30 [facility] 0.4 mg/dl As of February 2023 testing method has changed, this may include reference ranges. CREATININE 2025-06-12 08:30 [facility] 0.4 mg/dl As of February 2023 testing method has changed, this may include reference ranges. ALBUMIN/GLOBULIN RATIO 2025-06-12 08:30 [facility] 1.2 (missing) (missing) LYMPHOCYTES # (AUTO) 2025-06-12 08:30 [facility] 1.4 10 3/ul (missing) MEAN PLATELET VOLUME 2025-06-12 08:30 [facility] 10.7 fl (missing) HGB - HEMOGLOBIN 2025-06-12 08:30 [facility] 10.9 g/dl (missing) ESTIMATED AVERAGE GLUCOSE 2025-06-12 08:30 [facility] 105 mg/dl (missing) CHLORIDE 2025-06-12 08:30 [facility] 107 mmol/l As of February 2023 testing method has changed, this may include reference ranges. RED CELL DISTRIBUTION WIDTH 2025-06-12 08:30 [facility] 13.0 % (missing) SODIUM 2025-06-12 08:30 [facility] 136 mmol/l (missing) AST ASPARTATE AMINOTRANSFERASE 2025-06-12 08:30 [facility] 16 iu/l As of February 2023 testing method has changed, this may include reference ranges. ALKALINE PHOSPHATASE 2025-06-12 08:30 [email or web address] 172 iu/l As of February 2023 testing method has changed, this may include reference ranges. GFR - MDRD 2025-06-12 08:30 [email or web address] 190 (missing) The IDMS-traceable MDRD Study Equation has been validated extensively in and populations between the ages of 18 and 70 with impaired kidney function (eGFR < 60 mL/min/1.73m2) and has shown good performance for patients with all common causes of kidney disease. Although this equation has not been validated for patients older than 70, an MDRD-derived eGFR may still be a useful tool for providers caring for patients older than 70. References: http://www.nkdep. nih.gov/lab-evalu ation/gfr/creatin ine-stand ardization, last updated October 2011. GLOBULIN 2025-06-12 08:30 [email or web address] 2.9 g/dl (missing) CARBON DIOXIDE - CO2 2025-06-12 08:30 [email or web address] 22 mmol/l As of February 2023 testing method has changed, this may include reference ranges. PLT - PLATELET COUNT 2025-06-12 08:30 [email or web address] 244 10 3/ul (missing) MEAN CORPUSCULAR HEMOGLOBIN 2025-06-12 08:30 [email or web address] 29.1 pg (missing) ALBUMIN 2025-06-12 08:30 [email or web address] 3.5 g/dl As of February 2023 testing method has changed, this may include reference ranges. RED BLOOD COUNT 2025-06-12 08:30 [email or web address] 3.75 10 6/ul (missing) POTASSIUM 2025-06-12 08:30 [email or web address] 3.8 mmol/l As of February 2023 testing method has changed, this may include reference ranges. NEUTROPHILS # (AUTO) 2025-06-12 08:30 [email or web address] 3.9 10 3/ul (missing) MEAN CORPUSCULAR HGB CONC 2025-06-12 08:30 [email or web address] 32.2 g/dl (missing) HCT - HEMATOCRIT 2025-06-12 08:30 [email or web address] 33.8 % (missing) HEMOGLOBIN A1c% 2025-06-12 08:30 [email or web address] 5.3 % The [place] [employer] (ADA) has made the following recommendations: Monitoring HbA1c in Diabetic Patients: A1c (NGSP%) Goal <8 Less Stringent Goal <7 General Goal <6.5 More Stringent Goal Diagnosis of Diabetes: A1c (NGSP%) Goal >6.5 Diabetic 5.7-6.4 Pre-Diabetic <5.7 Non-Diabetic WHITE BLOOD COUNT 2025-06-12 08:30 [email or web address] 5.9 x10 3/ul (missing) TOTAL PROTEIN 2025-06-12 08:30 [email or web address] 6.4 g/dl As of February 2023 testing method has changed, this may include reference ranges. ANION GAP 2025-06-12 08:30 [email or web address] 7.0 (missing) (missing) GLUCOSE 2025-06-12 08:30 [email or web address] 72 mg/dl As of February 2023 testing method has changed, this may include reference ranges. ALT ALANINE AMINOTRANSFERASE 2025-06-12 08:30 [email or web address] 8 iu/l As of February 2023 testing method has changed, this may include reference ranges. BUN - BLOOD UREA NITROGEN 2025-06-12 08:30 [email or web address] 8 mg/dl As of February 2023 testing method has changed, this may include reference ranges. CALCIUM 2025-06-12 08:30 [email or web address] 8.3 mg/dl As of February 2023 testing method has changed, this may include reference ranges. MEAN CORPUSCULAR VOLUME 2025-06-12 08:30 [email or web address] 90.1 fl (missing) Social History date description facility
--- NOTE | 2025-06-12 11:30 | PROVIDER PROGRESS NOTE ---
Labor Progress Note Labor Progress Note Labor Progress Note/Additional Text: Induction initiated with misoprostol. Patient received single dose of 50mcg BC @0922 with a category I tracing and FHT 120-125. She then had a prolonged deceleration x5 minutes at about 0955 with resolution to baseline and return to category I tracing. The next hour she had a few intermittent variables but the tracing remained overall, reassuring. Then the last 45 minutes she has had x3 late decelerations lasting x2 minutes each with an increasing baseline. Decelerations not occuring with each contraction. These decelerations were followed by a period of tachycardia which appears to be slowly returning to a baseline of 150's. I've ordered a stat ultrasound to evaluate for position of cord. She's stating that the contractions are more painful but she's able to breath through them. Now farhad q 3-5 minutes. Reviewed distress and plan for ultrasound with patient and nursing team. Nursing interventions to include hands and knees and other positional changes as well as fluid bolus.
--- NOTE | 2025-06-12 12:00 | PHARMACY PROGRESS NOTE ---
Best Possible Medication History Admit Date and Time: 06/12/25 0900 Home Medications Medication Instructions Recorded Confirmed Type vitamins no.159-iron 1 tab PO DAILY 05/19/24 06/12/25 History fumarate 28 mg-folic acid 800 mcg tablet ( Vitamin) blood sugar diagnostic #100 ea 03/16/25 06/03/25 Rx blood-glucose meter #1 ea 03/16/25 06/03/25 Rx lancets #200 ea 03/16/25 06/03/25 Rx lidocaine 5 % topical ointment 1 applic topical QID AZ N pain #50 05/17/25 06/12/25 Rx grams calcium carbonate 500 mg PO QID PRN heartburn 06/12/25 06/12/25 History Processed by: Pharmacy Medications reviewed in ED?: No Medication History completed: Yes [facility] Statement: As the person ultimately responsible for medication therapy, providers are able to order a medication from an existing home medication list in [facility] via the "Reconcile Routine" prior to Confirmation of that medication by child support officer. Such practice is discouraged except when the physician, in their clinical judgment, deems that a medical need exists for a medication without regard to previous use.
--- NOTE | 2025-06-12 12:26 | PROVIDER PROGRESS NOTE ---
Subjective Subjective Subjective: Dr. Ruano, [facility] O[facility] updated on FHR changes and ultrasound prelimary report. Discussed as well the trending tachycardia and possible resolution ot baseline of 155. Reviewed plan of care to stop all future doses of misoprostol and discussed oxytocin as next intervention or AROM, but hopeful that labor progresses from here and less intervention is required. I have recommend epidural prior to AROM in the event that there is unresolved distress and an urgent operative intervention is needed. Dr. Ruano reviewed that she is 20 minutes away and would like to be called with as much time as we can give her. Will give operative team a heads up re episodes of distress as well. Current Medications Current Medications Current Medications: Current Medications Generic Name Dose Route Start Last Admin Trade Name Freq PRN Reason Stop Dose Admin Acetaminophen 1,000 mg 06/12/25 08:59 Acetaminophen 500 Mg Tablet PO Q8HR PRN Mild Pain or Fever>38C(100.4F) Calcium Carbonate/Glycine 1,000 mg 06/12/25 08:59 Calcium Carbonate Chew 500 Mg Tablet PO Q6HR PRN Heartburn Carboprost Tromethamine 250 mcg 06/12/25 08:59 Carboprost Tromethamine 250 Mcg/Ml Vial IM .ONCE PRN Hemorrhage Diphenhydramine HCl 25 mg 06/12/25 08:59 Diphenhydramine Inj 50 Mg/Ml Vial IVP Q6H PRN Allergy Symptoms Docusate Sodium 200 mg 06/12/25 08:59 Docusate Sodium 100 Mg Capsule PO BID PRN Constipation Fentanyl 50 mcg 06/12/25 08:59 Fentanyl 100 Mcg/2 Ml Vial IVP Q1H PRN Severe Pain (score 7-10) Hydralazine HCl 5 - 10 mg 06/12/25 08:59 Hydralazine Inj 20 Mg/Ml Vial IVP Q20M PRN SBP> or= 160 OR DBP> or= 110 Protocol Lactated Ringer's 500 mls @ 999 mls/hr 06/12/25 08:59 06/12/25 11:45 Lr IV Infused PRN PRN Infusion Heart Rate Abnormalities Oxytocin/Sodium Chloride 500 mls @ 999 mls/hr 06/12/25 08:59 Pitocin/Sodium Chloride IV PRN PRN POST- HEMORR PREVENTION Protocol 999 MILLIUNIT/MIN Tranexamic Acid 1,000 mg in 100 mls @ 600 mls/hr 06/12/25 08:59 Tranexamic 1,000 Mg/100ml-Nacl IV Q30M PRN EBL >1200mL and within 3hr Labetalol HCl 20 mg 06/12/25 08:59 Labetalol 20 Mg/4 Ml Syringe IVP .ONCE PRN SBP> or= 160 OR DBP> or= 110 Protocol Labetalol HCl 20 - 80 mg 06/12/25 08:59 Labetalol 20 Mg/4 Ml Syringe IVP Q10M PRN SBP> or= 160 OR DBP> or= 110 Protocol Labetalol HCl 20 - 40 mg 06/12/25 08:59 Labetalol 20 Mg/4 Ml Syringe IVP Q10M PRN SBP> or= 160 OR DBP> or= 110 Protocol Lidocaine HCl 20 ml 06/12/25 08:59 Lidocaine 1% 20 Ml Mdv ID 06/15/25 09:00 .ONCE PRN PERINEAL REPAIR Methylergonovine Maleate 0.2 mg 06/12/25 08:59 Methylergonovine 0.2 Mg/Ml Vial IM .ONCE PRN Hemorrhage Metoclopramide HCl 5 mg 06/12/25 08:59 Metoclopramide 10 Mg Tablet PO Q6HR PRN Nausea / Vomiting Misoprostol 600 mcg 06/12/25 08:59 Misoprostol 200 Mcg Tablet BC .ONCE PRN Hemorrhage Misoprostol 800 mcg 06/12/25 08:59 Misoprostol 200 Mcg Tablet [place] .ONCE PRN Hemorrhage Misoprostol 50 mcg 06/12/25 10:00 06/12/25 09:22 Misoprostol 100 Mcg Tablet BC 50 mcg Q4H JUAN DAVID Administration Nifedipine 10 - 20 mg 06/12/25 08:59 Nifedipine 10 Mg Capsule PO Q20M PRN SBP> or= 160 OR DBP> or= 110 Protocol Ondansetron HCl 4 mg 06/12/25 08:59 Ondansetron Odt 4 Mg Tablet PO Q4HR PRN Nausea / Vomiting Oxytocin 10 unit 06/12/25 08:59 Oxytocin 10 Unit/Ml Vial IM .ONCE PRN Step One if no IV access. Sodium Chloride 10 ml 06/12/25 09:00 06/12/25 08:30 Sodium Chloride Flush 0.9% 10 Ml Syringe IVP 10 ml Q8H JUAN DAVID Administration Sodium Chloride 10 ml 06/12/25 08:59 Sodium Chloride Flush 0.9% 10 Ml Syringe IVP PRN PRN NEEDED PER PROVIDER ORDERS Terbutaline Sulfate 0.25 mg 06/12/25 08:59 Terbutaline 1 Mg/Ml Vial SUBQ .ONCE PRN Tachystole Objective Vital Signs/Intake & Output Vital Signs: Vital Signs x48h Temp Pulse Resp BP 06/12/25 08:35 36.7 C 93 14 125/74 Intake & Output: Intake & Output 06/09/25 06/10/25 06/11/25 06/12/25 23:59 23:59 23:59 23:59 Intake Total 1000 / 1000 Balance 1000 / 1000 Weight (kg) 138 lb Lab Results 06/12/25 08:30 06/12/25 08:30 Other Labs: Lab Results x24hrs 06/12/25 Range/Units 08:30 WBC 5.9 (4.8-10.8) x10^3/uL RBC 3.75 L (4.20-5.40) 10^6/uL Hgb 10.9 L (12.0-16.0) g/dL Hct 33.8 L (37.0-47.0) % MCV 90.1 (81.0-99.0) fL MCH 29.1 (27.0-31.0) pg MCHC 32.2 (32.0-36.0) g/dL RDW 13.0 (12.0-15.0) % Plt Count 244 (130-450) 10^3/uL MPV 10.7 (7.9-10.8) fL Neut # (Auto) 3.9 (1.5-6.6) 10^3/uL Lymph # (Auto) 1.4 L (1.5-3.5) 10^3/uL [place] # (Auto) 0.4 (0.0-1.0) 10^3/uL Eos # (Auto) 0.2 (0.0-0.7) 10^3/uL Baso # (Auto) 0.0 (0.0-0.1) 10^3/uL Absolute Nucleated RBC 0.00 x10^3/uL Nucleated RBC % 0.0 /100WBC Sodium 136 (135-145) mmol/L Potassium 3.8 (3.5-4.5) mmol/L Chloride 107 (101-111) mmol/L Carbon Dioxide 22 (21-32) mmol/L Anion Gap 7.0 (6-13) BUN 8 (6-20) mg/dL Creatinine 0.4 L (0.6-1.3) mg/dL Estimated GFR (MDRD) 190 (>89) Glucose 72 L (74-104) mg/dL Estimat Average Glucose 105 H (70-100) mg/dL Hemoglobin A1c % 5.3 (4.27-6.07) % Calcium 8.3 L (8.5-10.3) mg/dL Total Bilirubin 0.4 (0.2-1.0) mg/dL AST 16 (10-42) IU/L ALT 8 L (10-60) IU/L Alkaline Phosphatase 172 H (42-121) IU/L Total Protein 6.4 (6.4-8.9) g/dL Albumin 3.5 (3.2-5.5) g/dL Globulin 2.9 (2.1-4.2) g/dL Albumin/Globulin Ratio 1.2 (1.0-2.2) Blood Type B POSITIVE Antibody Screen NEGATIVE
--- NOTE | 2025-06-12 12:36 | Ultrasound Report ---
PROCEDURE: US OB Limited INDICATIONS: Concern for location of cord OUTSIDE/PRIOR DATING DATA: Working BRITTANY: 06/19/2025 TECHNIQUE: Real-time scanning was performed of the fetus, with image documentation. Endovaginal scanning: Not performed COMPARISON: Multiple priors, the most recent dated 04/06/2025 FINDINGS: A single living intrauterine gestation is present. Presentation: Cephalic Placenta: Placental position is anterior, without previa. Amniotic fluid index: 17.3 cm, 78 percentile for gestational age. heart rate: 176 beats per minutes. Maternal cervical canal: Not well visualized secondary to position. Biophysical measurements: Not obtained. Other: The placental cord insertion has a normal appearance. The cord is not identified posterior to the head. IMPRESSION: Expected appearance of the umbilical cord. Cephalic presentation with normal amniotic fluid volume. Reviewed by: She Mackenzie MD on 06/12/2025 11:33 AM [facility] Approved by: She Mackenzie MD on 06/12/2025 11:33 AM [facility] Station ID: [id number]
--- NOTE | 2025-06-12 13:27 | PROVIDER PROGRESS NOTE ---
Subjective Subjective Subjective: Reviewed ongoing category II tracing with Antonio. Overall, good FHR variability which is reassuring. Baseline FHR seems to be settling in 150's with accelerations and prolonged accelerations to 180's. Patient remains a febrile and intact. Reviewed that it can be difficult for baby's to sustain prolong periods of both low and high heart rates. Reviewed that prolonged and late decelerations are not occurring with each contraction which is independently reassuring but that babies have only so much reserve and we may see that in time baby will not be able to maintain variability and decelerations may become more frequent and more significant which with further limit our interventions as well as we may have more discussions on moving toward a primary section. Discussed options for moving toward delivery. Opted for SVE and membrane sweep. SVE /2, now more anterior and baby well engaged in pelvis. Aggressive membrane sweep completed by CNM. Contractions q 3-5 minutes palpating moderately. Rating contractions 4-5vps. Reviewed that I would like her to have an epidural before any further intervention as if a section is indicated for distress things would move very quickly and having epidural anesthesia may help her to avoid emergency general anesthesia. OR team (CREW CALLER, Circulating RN and radiologic technologist) have been made aware of intermittenly concerning FHR pattern but that no decision has been made for section at this time. Current Medications Current Medications Current Medications: Current Medications Generic Name Dose Route Start Last Admin Trade Name Freq PRN Reason Stop Dose Admin Acetaminophen 1,000 mg 06/12/25 08:59 Acetaminophen 500 Mg Tablet PO Q8HR PRN Mild Pain or Fever>38C(100.4F) Calcium Carbonate/Glycine 1,000 mg 06/12/25 08:59 Calcium Carbonate Chew 500 Mg Tablet PO Q6HR PRN Heartburn Carboprost Tromethamine 250 mcg 06/12/25 08:59 Carboprost Tromethamine 250 Mcg/Ml Vial IM .ONCE PRN Hemorrhage Diphenhydramine HCl 25 mg 06/12/25 08:59 Diphenhydramine Inj 50 Mg/Ml Vial IVP Q6H PRN Allergy Symptoms Docusate Sodium 200 mg 06/12/25 08:59 Docusate Sodium 100 Mg Capsule PO BID PRN Constipation Fentanyl 50 mcg 06/12/25 08:59 Fentanyl 100 Mcg/2 Ml Vial IVP Q1H PRN Severe Pain (score 7-10) Hydralazine HCl 5 - 10 mg 06/12/25 08:59 Hydralazine Inj 20 Mg/Ml Vial IVP Q20M PRN SBP> or= 160 OR DBP> or= 110 Protocol Lactated Ringer's 500 mls @ 999 mls/hr 06/12/25 08:59 06/12/25 11:45 Lr IV Infused PRN PRN Infusion Heart Rate Abnormalities Oxytocin/Sodium Chloride 500 mls @ 999 mls/hr 06/12/25 08:59 Pitocin/Sodium Chloride IV PRN PRN POST- HEMORR PREVENTION Protocol 999 MILLIUNIT/MIN Tranexamic Acid 1,000 mg in 100 mls @ 600 mls/hr 06/12/25 08:59 Tranexamic 1,000 Mg/100ml-Nacl IV Q30M PRN EBL >1200mL and within 3hr Labetalol HCl 20 mg 06/12/25 08:59 Labetalol 20 Mg/4 Ml Syringe IVP .ONCE PRN SBP> or= 160 OR DBP> or= 110 Protocol Labetalol HCl 20 - 80 mg 06/12/25 08:59 Labetalol 20 Mg/4 Ml Syringe IVP Q10M PRN SBP> or= 160 OR DBP> or= 110 Protocol Labetalol HCl 20 - 40 mg 06/12/25 08:59 Labetalol 20 Mg/4 Ml Syringe IVP Q10M PRN SBP> or= 160 OR DBP> or= 110 Protocol Lidocaine HCl 20 ml 06/12/25 08:59 Lidocaine 1% 20 Ml Mdv ID 06/15/25 09:00 .ONCE PRN PERINEAL REPAIR Methylergonovine Maleate 0.2 mg 06/12/25 08:59 Methylergonovine 0.2 Mg/Ml Vial IM .ONCE PRN Hemorrhage Metoclopramide HCl 5 mg 06/12/25 08:59 Metoclopramide 10 Mg Tablet PO Q6HR PRN Nausea / Vomiting Misoprostol 600 mcg 06/12/25 08:59 Misoprostol 200 Mcg Tablet BC .ONCE PRN Hemorrhage Misoprostol 800 mcg 06/12/25 08:59 Misoprostol 200 Mcg Tablet [place] .ONCE PRN Hemorrhage Misoprostol 50 mcg 06/12/25 10:00 06/12/25 09:22 Misoprostol 100 Mcg Tablet BC 50 mcg Q4H JUAN DAVID Administration Nifedipine 10 - 20 mg 06/12/25 08:59 Nifedipine 10 Mg Capsule PO Q20M PRN SBP> or= 160 OR DBP> or= 110 Protocol Ondansetron HCl 4 mg 06/12/25 08:59 Ondansetron Odt 4 Mg Tablet PO Q4HR PRN Nausea / Vomiting Oxytocin 10 unit 06/12/25 08:59 Oxytocin 10 Unit/Ml Vial IM .ONCE PRN Step One if no IV access. Sodium Chloride 10 ml 06/12/25 09:00 06/12/25 08:30 Sodium Chloride Flush 0.9% 10 Ml Syringe IVP 10 ml Q8H JUAN DAVID Administration Sodium Chloride 10 ml 06/12/25 08:59 Sodium Chloride Flush 0.9% 10 Ml Syringe IVP PRN PRN NEEDED PER PROVIDER ORDERS Terbutaline Sulfate 0.25 mg 06/12/25 08:59 Terbutaline 1 Mg/Ml Vial SUBQ .ONCE PRN Tachystole Objective Vital Signs/Intake & Output Vital Signs: Vital Signs x48h Temp Pulse Resp BP 06/12/25 08:35 36.7 C 93 14 125/74 Intake & Output: Intake & Output 06/09/25 06/10/25 06/11/25 06/12/25 23:59 23:59 23:59 23:59 Intake Total 1000 / 1000 Balance 1000 / 1000 Weight (kg) 138 lb Lab Results 06/12/25 08:30 06/12/25 08:30 Other Labs: Lab Results x24hrs 06/12/25 Range/Units 08:30 WBC 5.9 (4.8-10.8) x10^3/uL RBC 3.75 L (4.20-5.40) 10^6/uL Hgb 10.9 L (12.0-16.0) g/dL Hct 33.8 L (37.0-47.0) % MCV 90.1 (81.0-99.0) fL MCH 29.1 (27.0-31.0) pg MCHC 32.2 (32.0-36.0) g/dL RDW 13.0 (12.0-15.0) % Plt Count 244 (130-450) 10^3/uL MPV 10.7 (7.9-10.8) fL Neut # (Auto) 3.9 (1.5-6.6) 10^3/uL Lymph # (Auto) 1.4 L (1.5-3.5) 10^3/uL [place] # (Auto) 0.4 (0.0-1.0) 10^3/uL Eos # (Auto) 0.2 (0.0-0.7) 10^3/uL Baso # (Auto) 0.0 (0.0-0.1) 10^3/uL Absolute Nucleated RBC 0.00 x10^3/uL Nucleated RBC % 0.0 /100WBC Sodium 136 (135-145) mmol/L Potassium 3.8 (3.5-4.5) mmol/L Chloride 107 (101-111) mmol/L Carbon Dioxide 22 (21-32) mmol/L Anion Gap 7.0 (6-13) BUN 8 (6-20) mg/dL Creatinine 0.4 L (0.6-1.3) mg/dL Estimated GFR (MDRD) 190 (>89) Glucose 72 L (74-104) mg/dL Estimat Average Glucose 105 H (70-100) mg/dL Hemoglobin A1c % 5.3 (4.27-6.07) % Calcium 8.3 L (8.5-10.3) mg/dL Total Bilirubin 0.4 (0.2-1.0) mg/dL AST 16 (10-42) IU/L ALT 8 L (10-60) IU/L Alkaline Phosphatase 172 H (42-121) IU/L Total Protein 6.4 (6.4-8.9) g/dL Albumin 3.5 (3.2-5.5) g/dL Globulin 2.9 (2.1-4.2) g/dL Albumin/Globulin Ratio 1.2 (1.0-2.2) Blood Type B POSITIVE Antibody Screen NEGATIVE
--- NOTE | 2025-06-12 14:11 | PROVIDER PROGRESS NOTE ---
Subjective Subjective Subjective: No significant heart rate decelerations and category I x >75 minutes. Appears to be slowly returning to admission baseline of 125-130. Still intermittent periods of prolonged accelerations to 170. Excellent moderate variability. Becoming increasingly more uncomfortable and requesting epidural. Current Medications Current Medications Current Medications: Current Medications Generic Name Dose Route Start Last Admin Trade Name Freq PRN Reason Stop Dose Admin Acetaminophen 1,000 mg 06/12/25 08:59 Acetaminophen 500 Mg Tablet PO Q8HR PRN Mild Pain or Fever>38C(100.4F) Calcium Carbonate/Glycine 1,000 mg 06/12/25 08:59 Calcium Carbonate Chew 500 Mg Tablet PO Q6HR PRN Heartburn Carboprost Tromethamine 250 mcg 06/12/25 08:59 Carboprost Tromethamine 250 Mcg/Ml Vial IM .ONCE PRN Hemorrhage Diphenhydramine HCl 25 mg 06/12/25 08:59 Diphenhydramine Inj 50 Mg/Ml Vial IVP Q6H PRN Allergy Symptoms Docusate Sodium 200 mg 06/12/25 08:59 Docusate Sodium 100 Mg Capsule PO BID PRN Constipation Fentanyl 50 mcg 06/12/25 08:59 Fentanyl 100 Mcg/2 Ml Vial IVP Q1H PRN Severe Pain (score 7-10) Hydralazine HCl 5 - 10 mg 06/12/25 08:59 Hydralazine Inj 20 Mg/Ml Vial IVP Q20M PRN SBP> or= 160 OR DBP> or= 110 Protocol Lactated Ringer's 500 mls @ 999 mls/hr 06/12/25 08:59 06/12/25 11:45 Lr IV Infused PRN PRN Infusion Heart Rate Abnormalities Oxytocin/Sodium Chloride 500 mls @ 999 mls/hr 06/12/25 08:59 Pitocin/Sodium Chloride IV PRN PRN POST- HEMORR PREVENTION Protocol 999 MILLIUNIT/MIN Tranexamic Acid 1,000 mg in 100 mls @ 600 mls/hr 06/12/25 08:59 Tranexamic 1,000 Mg/100ml-Nacl IV Q30M PRN EBL >1200mL and within 3hr Labetalol HCl 20 mg 06/12/25 08:59 Labetalol 20 Mg/4 Ml Syringe IVP .ONCE PRN SBP> or= 160 OR DBP> or= 110 Protocol Labetalol HCl 20 - 80 mg 06/12/25 08:59 Labetalol 20 Mg/4 Ml Syringe IVP Q10M PRN SBP> or= 160 OR DBP> or= 110 Protocol Labetalol HCl 20 - 40 mg 06/12/25 08:59 Labetalol 20 Mg/4 Ml Syringe IVP Q10M PRN SBP> or= 160 OR DBP> or= 110 Protocol Lidocaine HCl 20 ml 06/12/25 08:59 Lidocaine 1% 20 Ml Mdv ID 06/15/25 09:00 .ONCE PRN PERINEAL REPAIR Methylergonovine Maleate 0.2 mg 06/12/25 08:59 Methylergonovine 0.2 Mg/Ml Vial IM .ONCE PRN Hemorrhage Metoclopramide HCl 5 mg 06/12/25 08:59 Metoclopramide 10 Mg Tablet PO Q6HR PRN Nausea / Vomiting Misoprostol 600 mcg 06/12/25 08:59 Misoprostol 200 Mcg Tablet BC .ONCE PRN Hemorrhage Misoprostol 800 mcg 06/12/25 08:59 Misoprostol 200 Mcg Tablet [place] .ONCE PRN Hemorrhage Misoprostol 50 mcg 06/12/25 10:00 06/12/25 09:22 Misoprostol 100 Mcg Tablet BC 50 mcg Q4H JUAN DAVID Administration Nifedipine 10 - 20 mg 06/12/25 08:59 Nifedipine 10 Mg Capsule PO Q20M PRN SBP> or= 160 OR DBP> or= 110 Protocol Ondansetron HCl 4 mg 06/12/25 08:59 Ondansetron Odt 4 Mg Tablet PO Q4HR PRN Nausea / Vomiting Oxytocin 10 unit 06/12/25 08:59 Oxytocin 10 Unit/Ml Vial IM .ONCE PRN Step One if no IV access. Sodium Chloride 10 ml 06/12/25 09:00 06/12/25 08:30 Sodium Chloride Flush 0.9% 10 Ml Syringe IVP 10 ml Q8H JUAN DAVID Administration Sodium Chloride 10 ml 06/12/25 08:59 Sodium Chloride Flush 0.9% 10 Ml Syringe IVP PRN PRN NEEDED PER PROVIDER ORDERS Terbutaline Sulfate 0.25 mg 06/12/25 08:59 Terbutaline 1 Mg/Ml Vial SUBQ .ONCE PRN Tachystole Objective Vital Signs/Intake & Output Vital Signs: Vital Signs x48h Temp Pulse Resp BP 06/12/25 08:35 36.7 C 93 14 125/74 Intake & Output: Intake & Output 06/09/25 06/10/25 06/11/25 06/12/25 23:59 23:59 23:59 23:59 Intake Total 1000 / 1000 Balance 1000 / 1000 Weight (kg) 138 lb Lab Results 06/12/25 08:30 06/12/25 08:30 Other Labs: Lab Results x24hrs 06/12/25 Range/Units 08:30 WBC 5.9 (4.8-10.8) x10^3/uL RBC 3.75 L (4.20-5.40) 10^6/uL Hgb 10.9 L (12.0-16.0) g/dL Hct 33.8 L (37.0-47.0) % MCV 90.1 (81.0-99.0) fL MCH 29.1 (27.0-31.0) pg MCHC 32.2 (32.0-36.0) g/dL RDW 13.0 (12.0-15.0) % Plt Count 244 (130-450) 10^3/uL MPV 10.7 (7.9-10.8) fL Neut # (Auto) 3.9 (1.5-6.6) 10^3/uL Lymph # (Auto) 1.4 L (1.5-3.5) 10^3/uL [place] # (Auto) 0.4 (0.0-1.0) 10^3/uL Eos # (Auto) 0.2 (0.0-0.7) 10^3/uL Baso # (Auto) 0.0 (0.0-0.1) 10^3/uL Absolute Nucleated RBC 0.00 x10^3/uL Nucleated RBC % 0.0 /100WBC Sodium 136 (135-145) mmol/L Potassium 3.8 (3.5-4.5) mmol/L Chloride 107 (101-111) mmol/L Carbon Dioxide 22 (21-32) mmol/L Anion Gap 7.0 (6-13) BUN 8 (6-20) mg/dL Creatinine 0.4 L (0.6-1.3) mg/dL Estimated GFR (MDRD) 190 (>89) Glucose 72 L (74-104) mg/dL Estimat Average Glucose 105 H (70-100) mg/dL Hemoglobin A1c % 5.3 (4.27-6.07) % Calcium 8.3 L (8.5-10.3) mg/dL Total Bilirubin 0.4 (0.2-1.0) mg/dL AST 16 (10-42) IU/L ALT 8 L (10-60) IU/L Alkaline Phosphatase 172 H (42-121) IU/L Total Protein 6.4 (6.4-8.9) g/dL Albumin 3.5 (3.2-5.5) g/dL Globulin 2.9 (2.1-4.2) g/dL Albumin/Globulin Ratio 1.2 (1.0-2.2) Blood Type B POSITIVE Antibody Screen NEGATIVE
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
[2025-06-12] MEDS ORDERED: ROPIVACAINE 0.2% 200 MG/100 ML BAG EP ONE (14:28)
[2025-06-12] MEDS ORDERED: METOCLOPRAMIDE 10 MG/2 ML VIAL IVP PRN (15:05)
[2025-06-12] MEDS ORDERED: LACTATED RINGERS 500 ML IV ONE (15:05)
[2025-06-12] MEDS ORDERED: ONDANSETRON 4 MG/2 ML VIAL IVP PRN (15:05)
[2025-06-12] MEDS ORDERED: ePHEDrine 50 MG/ML VIAL IVP PRN (15:05)
[2025-06-12] MEDS ORDERED: ROPIVACAINE 0.2% 200 MG/100 ML BAG EP PRN (15:05)
[2025-06-12] MEDS ORDERED: NALBUPHINE 10 MG/ML AMP IVP PRN (15:05)
[2025-06-12] MEDS ORDERED: NALOXONE 0.4 MG/ML VIAL IVP PRN ×2 (15:05→18:41)
--- NOTE | 2025-06-12 15:08 | ANESTHESIA PROCEDURE NOTE ---
Pre-Anesthesia VS, & Labs Diagnosis Surgical Diagnosis:: term labor pain Procedure Procedure: epidural for Vitals Vital Signs: Temp Pulse Resp BP 36.7 C 93 14 125/74 06/12/25 08:35 06/12/25 08:35 06/12/25 08:35 06/12/25 08:35 NPO Last Fluid Intake: t/o day Last Food Intake: lunch Is Patient ?: Yes Lab Results Current Lab Results: Laboratory Tests 06/12/25 08:30: WBC 5.9, RBC 3.75 L, Hgb 10.9 L, Hct 33.8 L, MCV 90.1, MCH 29.1, MCHC 32.2, RDW 13.0, Plt Count 244, MPV 10.7, Neut # (Auto) 3.9, Lymph # (Auto) 1.4 L, [place] # (Auto) 0.4, Eos # (Auto) 0.2, Baso # (Auto) 0.0, Absolute Nucleated RBC 0.00, Nucleated RBC % 0.0, Sodium 136, Potassium 3.8, Chloride 107, Carbon Dioxide 22, Anion Gap 7.0, BUN 8, Creatinine 0.4 L, Estimated GFR (MDRD) 190, Glucose 72 L, Estimat Average Glucose 105 H, Hemoglobin A1c % 5.3, C alcium 8.3 L, Total Bilirubin 0.4, AST 16, ALT 8 L, Alkaline Phosphatase 172 H, Total Protein 6.4, Albumin 3.5, Globulin 2.9, Albumin/Globulin Ratio 1.2, Blood Type B POSITIVE, Antibody Screen NEGATIVE Lab results reviewed: Yes 06/12/25 08:30 06/12/25 08:30 Meds/Allgy Home Medications Ambulatory Orders Medication Instructions Recorded Confirmed vitamins no.159-iron 1 tab PO DAILY 05/19/24 06/12/25 fumarate 28 mg-folic acid 800 mcg tablet ( Vitamin) blood sugar diagnostic #100 ea 03/16/25 06/03/25 blood-glucose meter #1 ea 03/16/25 06/03/25 lancets #200 ea 03/16/25 06/03/25 lidocaine 5 % topical ointment 1 applic topical QID DC N pain #50 05/17/25 06/12/25 grams calcium carbonate 500 mg PO QID PRN heartburn 06/12/25 06/12/25 Allergies Allergies Allergy/AdvReac Type Severity Reaction Status Date / Time No Known Drug Allergies Allergy Verified 05/20/25 10:06 PFSH Active Problems All Active Problems External thrombosed hemorrhoids (Acute) Gestational diabetes mellitus, class A1 (Acute) Impaired glucose in , antepartum (Acute) Supervision of normal (Acute) Medical History Medical History Anxiety associated with depression Family History Family History Maternal grandfather High blood pressure CAD (coronary artery disease) Mother Depressed Migraines Maternal grandmother Diabetes CVA (cerebral vascular accident) Sister Depressed Father Anxiety Social History Social History (Updated 05/17/25 @ 10:53 by Ralph Youngblood MD) Smoking Status: Never smoker If you are a former smoker, when did you quit? 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 [place] Level: Independent Do you feel safe in your home environment?: Yes History of physical, verbal, emotional, or financial abuse?: No ETOH Use: None Substance Use: denies use POLST Patient has POLST: No Anesthesia Exam (Expanded) Exam General: Alert, Oriented x3, Cooperative and Mild distress Dental: WNL Mouth Openin Fingerbreadth Neck Mobility: Normal Mallampati classification: II Thyromental Distance: 4-6 cm Respiratory: No respiratory distress Cardiovascular: Regular rate Neurological: Normal speech Mental/Cognitive Status: Alert/Oriented X3 and Normal for patient Cognitive Status: Within normal limits Exam Exam Vital Signs: Vital Signs x48h Temp Pulse Resp BP 06/12/25 08:35 36.7 C 93 14 125/74 Plan Plan Anesthesia Type: Epidural Consent for Procedure(s) Verified and Reviewed: Yes Code Status: Attempt Resuscitation ASA Classification ASA classification: 2-Mild systemic disease Is this case an emergency?: No
--- NOTE | 2025-06-12 15:31 | PROVIDER PROGRESS NOTE ---
Subjective Prog Note Date Prog Note Date: 06/12/25 Prog Note Time: 15:23 Subjective Subjective: Epidural in place and stating increasing relief. FHR baseline appears to be returning to 120-125, moderate variability, + accelerations, intermitting small variables. No significant hypotension following the epidural. Morales catheter placed and SVE /-2 AROM, moderate amount of clear fluid. Contractions q 1- 3.5 minutes, palpating moderate - strong. Mood good, Vitor supportive at bedside. Wne is a [employer] fan and has been trying to watch the [facility] game on her laptop throughout her labor. [employer] is now leading 24-10 in Q4 Current Medications Current Medications Current Medications: Current Medications Generic Name Dose Route Start Last Admin Trade Name Freq PRN Reason Stop Dose Admin Acetaminophen 1,000 mg 06/12/25 08:59 Acetaminophen 500 Mg Tablet PO Q8HR PRN Mild Pain or Fever>38C(100.4F) Calcium Carbonate/Glycine 1,000 mg 06/12/25 08:59 Calcium Carbonate Chew 500 Mg Tablet PO Q6HR PRN Heartburn Carboprost Tromethamine 250 mcg 06/12/25 08:59 Carboprost Tromethamine 250 Mcg/Ml Vial IM .ONCE PRN Hemorrhage Diphenhydramine HCl 25 mg 06/12/25 08:59 Diphenhydramine Inj 50 Mg/Ml Vial IVP Q6H PRN Allergy Symptoms Diphenhydramine HCl 12.5 - 25 mg 06/12/25 15:05 Diphenhydramine Inj 50 Mg/Ml Vial IVP Q6HR PRN ITCHING Docusate Sodium 200 mg 06/12/25 08:59 Docusate Sodium 100 Mg Capsule PO BID PRN Constipation Ephedrine Sulfate 5 mg 06/12/25 15:05 Ephedrine 50 Mg/Ml Vial IVP Q5M PRN For SBP<100;give until SBP>100 Fentanyl 50 mcg 06/12/25 08:59 Fentanyl 100 Mcg/2 Ml Vial IVP Q1H PRN Severe Pain (score 7-10) Hydralazine HCl 5 - 10 mg 06/12/25 08:59 Hydralazine Inj 20 Mg/Ml Vial IVP Q20M PRN SBP> or= 160 OR DBP> or= 110 Protocol Lactated Ringer's 500 mls @ 999 mls/hr 11/08/25 08:59 06/12/25 11:45 Lr IV Infused PRN PRN Infusion Heart Rate Abnormalities Oxytocin/Sodium Chloride 500 mls @ 999 mls/hr 06/12/25 08:59 Pitocin/Sodium Chloride IV PRN PRN POST- HEMORR PREVENTION Protocol 999 MILLIUNIT/MIN Tranexamic Acid 1,000 mg in 100 mls @ 600 mls/hr 06/12/25 08:59 Tranexamic 1,000 Mg/100ml-Nacl IV Q30M PRN EBL >1200mL and within 3hr Lactated Ringer's 500 mls @ 999 mls/hr 06/12/25 15:05 Lr IV 06/12/25 15:35 ONCE ONE Ropivacaine 200 mg in 100 mls @ 0 mls/hr 06/12/25 15:05 Naropin 0.2% EP PRN PRN PAIN Protocol Per Protocol Labetalol HCl 20 mg 06/12/25 08:59 Labetalol 20 Mg/4 Ml Syringe IVP .ONCE PRN SBP> or= 160 OR DBP> or= 110 Protocol Labetalol HCl 20 - 80 mg 06/12/25 08:59 Labetalol 20 Mg/4 Ml Syringe IVP Q10M PRN SBP> or= 160 OR DBP> or= 110 Protocol Labetalol HCl 20 - 40 mg 06/12/25 08:59 Labetalol 20 Mg/4 Ml Syringe IVP Q10M PRN SBP> or= 160 OR DBP> or= 110 Protocol Lidocaine HCl 20 ml 06/12/25 08:59 Lidocaine 1% 20 Ml Mdv ID 06/15/25 09:00 .ONCE PRN PERINEAL REPAIR Methylergonovine Maleate 0.2 mg 06/12/25 08:59 Methylergonovine 0.2 Mg/Ml Vial IM .ONCE PRN Hemorrhage Metoclopramide HCl 5 mg 06/12/25 08:59 Metoclopramide 10 Mg Tablet PO Q6HR PRN Nausea / Vomiting Metoclopramide HCl 10 mg 06/12/25 15:05 Metoclopramide 10 Mg/2 Ml Vial IVP Q6HR PRN Nausea / Vomiting Misoprostol 600 mcg 06/12/25 08:59 Misoprostol 200 Mcg Tablet BC .ONCE PRN Hemorrhage Misoprostol 800 mcg 06/12/25 08:59 Misoprostol 200 Mcg Tablet AL .ONCE PRN Hemorrhage Misoprostol 50 mcg 06/12/25 10:00 06/12/25 09:22 Misoprostol 100 Mcg Tablet BC 50 mcg Q4H JUAN DAVID Administration Nalbuphine HCl 2.5 - 5 mg 06/12/25 15:05 Nalbuphine 10 Mg/Ml Amp IVP Q4H PRN ITCHING Naloxone HCl 0.1 mg 06/12/25 15:05 Naloxone 0.4 Mg/Ml Vial IVP Q2M PRN RR<8 Nifedipine 10 - 20 mg 06/12/25 08:59 Nifedipine 10 Mg Capsule PO Q20M PRN SBP> or= 160 OR DBP> or= 110 Protocol Ondansetron HCl 4 mg 06/12/25 08:59 Ondansetron Odt 4 Mg Tablet PO Q4HR PRN Nausea / Vomiting Ondansetron HCl 4 mg 06/12/25 15:05 Ondansetron 4 Mg/2 Ml Vial IVP Q6HR PRN Nausea / Vomiting Oxytocin 10 unit 06/12/25 08:59 Oxytocin 10 Unit/Ml Vial IM .ONCE PRN Step One if no IV access. Sodium Chloride 10 ml 06/12/25 09:00 06/12/25 08:30 Sodium Chloride Flush 0.9% 10 Ml Syringe IVP 10 ml Q8H JUAN DAVID Administration Sodium Chloride 10 ml 06/12/25 08:59 Sodium Chloride Flush 0.9% 10 Ml Syringe IVP PRN PRN NEEDED PER PROVIDER ORDERS Terbutaline Sulfate 0.25 mg 06/12/25 08:59 Terbutaline 1 Mg/Ml Vial SUBQ .ONCE PRN Tachystole Objective Vital Signs/Intake & Output Vital Signs: Vital Signs x48h Temp Pulse Resp BP 06/12/25 08:35 36.7 C 93 14 125/74 Intake & Output: Intake & Output 06/09/25 06/10/25 06/11/25 06/12/25 23:59 23:59 23:59 23:59 Intake Total 1800 / 1800 Balance 1800 / 1800 Weight (kg) 138 lb Lab Results 06/12/25 08:30 06/12/25 08:30 Other Labs: Lab Results x24hrs 06/12/25 Range/Units 08:30 WBC 5.9 (4.8-10.8) x10^3/uL RBC 3.75 L (4.20-5.40) 10^6/uL Hgb 10.9 L (12.0-16.0) g/dL Hct 33.8 L (37.0-47.0) % MCV 90.1 (81.0-99.0) fL MCH 29.1 (27.0-31.0) pg MCHC 32.2 (32.0-36.0) g/dL RDW 13.0 (12.0-15.0) % Plt Count 244 (130-450) 10^3/uL MPV 10.7 (7.9-10.8) fL Neut # (Auto) 3.9 (1.5-6.6) 10^3/uL Lymph # (Auto) 1.4 L (1.5-3.5) 10^3/uL [place] # (Auto) 0.4 (0.0-1.0) 10^3/uL Eos # (Auto) 0.2 (0.0-0.7) 10^3/uL Baso # (Auto) 0.0 (0.0-0.1) 10^3/uL Absolute Nucleated RBC 0.00 x10^3/uL Nucleated RBC % 0.0 /100WBC Sodium 136 (135-145) mmol/L Potassium 3.8 (3.5-4.5) mmol/L Chloride 107 (101-111) mmol/L Carbon Dioxide 22 (21-32) mmol/L Anion Gap 7.0 (6-13) BUN 8 (6-20) mg/dL Creatinine 0.4 L (0.6-1.3) mg/dL Estimated GFR (MDRD) 190 (>89) Glucose 72 L (74-104) mg/dL Estimat Average Glucose 105 H (70-100) mg/dL Hemoglobin A1c % 5.3 (4.27-6.07) % Calcium 8.3 L (8.5-10.3) mg/dL Total Bilirubin 0.4 (0.2-1.0) mg/dL AST 16 (10-42) IU/L ALT 8 L (10-60) IU/L Alkaline Phosphatase 172 H (42-121) IU/L Total Protein 6.4 (6.4-8.9) g/dL Albumin 3.5 (3.2-5.5) g/dL Globulin 2.9 (2.1-4.2) g/dL Albumin/Globulin Ratio 1.2 (1.0-2.2) Blood Type B POSITIVE Antibody Screen NEGATIVE
--- NOTE | 2025-06-12 16:42 | PROVIDER PROGRESS NOTE ---
Labor Progress Note Labor Progress Note Labor Progress Note/Additional Text: S/P AROM @ 1508. Fluid continues to be clear. Decreasing FHR baseline to 115, continued moderate variability but now with more intermittent variables and early decelerations. Contractions q 1-2.5 minutes. Feeling shaky, but not cold, and endorsing rectal pressure with every contractions in high thrones position. SVE 7/100/0. Mood good, excited [employer] won the football game.
--- NOTE | 2025-06-12 18:27 | DELIVERY NOTE ---
OB Labor and Delivery Note Delivery Comments (Free Text/Narrative) Delivery Comments (Free Text/Narrative): This 30 -year-old, G 2 P 1001 @ 39 weeks gestation presented this morning for scheduled term elective induction of labor. Cervix was 4/80/-3 and Vertex presentation by exam. Salazar score 7. GBS negative. Misoprostol x1 dose 50mcg BC. With non-reassuring patterning following about an hour after misoprostol administration. On-call OBGYN was consulted but, ultimately, the tracing became more reassuring. FHR pattern demonstrated labile baseline from 120 to 155 then return to a slightly lower baseline prior to delivery. Category I tracing most of the afternoon with return to category II just prior to second stage. Normal labor course. Epidural placed upon maternal request. AROM clear fluid @ 1508. She then progressed to complete/complete @ 1740 and second stage began. : Normal spontaneous vaginal delivery of a viable female on 06/12/2025 @ 1748. Tight nuchal x 1, reduced. The was placed on maternal abdomen, stimulated, dried and placed skin to skin. Apgars 7 & 9 @ 1 & 5 minutes. The umbilical cord was allowed to stop pulsating at which time it was doubly clamped by delivering provider and cut by FOB. 3VC. Cord blood was obtained. Perineal repair completed prior to placenta delivery. Fundal massage and gently cord traction applied for active management of the third stage, placenta delivered spontaneously and intact approximately 20 minutes following delivery. Upon inspection, peripheral velamentous umbilical cord insertion. EBL 50cc. Placenta was not sent to pathology. No immediate pitocin infusion as bleeding was very minimal. Uterine massage was performed until uterus was deemed firm. weight 6#15.184oz Inspection of the perineum noted a small first-degree midline perineal laceration. The laceration was repaired under epidural anesthesia with running 3-0 vicryl rapide, repaired in standards fashion under sterile conditions. She did have increased sensation so 1% lidocaine was injected as an additional local anesthetic. Tolerated repair well. Upon re-inspection the patient was hemostatic. Uterus again massaged and found to be firm. Needle and sponge counts were correct. Uterine fundus firm and there is no excessive bleeding. Tissues well approximated. Skin to skin initiated. Family bonding well. Both mother and baby are in stable condition.
[2025-06-12] MEDS: ACETAMINOPHEN 500 MG TABLET PO PRN (18:28)
[2025-06-12] MEDS ORDERED: SIMETHICONE CHEW 80 MG TABLET PO PRN (18:41)
[2025-06-12] MEDS ORDERED: LABETALOL 5 MG/1 ML 20 ML MDV IVP PRN (18:41)
[2025-06-12] MEDS: IBUPROFEN 600 MG TABLET PO PRN (18:50)
[2025-06-12] MEDS: DOCUSATE SODIUM 100 MG CAPSULE PO SCH (21:40)
[2025-06-13] MEDS: ACETAMINOPHEN 500 MG TABLET PO PRN (04:20)
--- NOTE | 2025-06-13 09:18 | Discharge Summary ---
Discharge Summary HOSPITAL COURSE Hospital Course: Date of Admission: 06/12/2025 Date of Discharge: 06/13/2025 Diagnosis on Admission: 1. 30 yo @ 39+0 weeks gestation by 10+3 wk U/S 2. Term gestation 3. Elective induction of labor 4. Salazar score 7 5. FHR 120-125 Cat I 6. GBS NEG Diagnosis on Discharge: 1. 30yo PPD#1 s/p TSVD viable female infant 2. 3. Normal recovery Brief History: She is a patient of [facility] who presented on 06/12/2025 for elective induction of labor. Cervix was 4/80/-3 and vertex with intact membranes. She received 1 dose of 50mcg BC misoprostol for induction of labor. FHR demonstrated persistent Category II pattern through most of her labor process but overall remained reassuring. Epidural was placed per maternal request. AROM occurred at 1508 and was noted to be a moderate amount of clear fluid. She spontaneously progressed to deliver a viable female infant on 06/12/2025 @ 1748. Perineum was found to have a 1st degree laceration which was repaired using a 3-[address]-1 needle in standard fashion and under sterile conditions. Apgars were 7/9 at 1 and 5 minutes respectively. QBL 50 mL. She has been doing well in her course. She is ambulating and tolerating a regular diet. She is urinating without difficulty and her lochia is normal. Her pain is well controlled with oral medications. She will be discharged home today on day #1 with instructions to continue taking her vitamin while and to continue taking Ibuprofen and Tylenol over the counter as needed for pain management. She intends to follow up with myself at [facility] in 1 week for routine visit or sooner if needed. She has been given precautions to call if she has any worsening fevers, chills, abdominal pain, increased vaginal bleeding or foul smelling vaginal lochia. Physical Exam: Normocephalic, atraumatic. Heart RRR w/o M/G/R, lungs CTAB, abdomen soft and nontender with fundus firm at U, perineum intact, light lochia rubra, bilateral LE's no edema. Mood is good. ALLERGIES Allergies Allergy/AdvReac Type Severity Reaction Status Date / Time No Known Drug Allergies Allergy Verified 05/20/25 10:06 MEDICATIONS Ambulatory Orders Medication Instructions Recorded Confirmed vitamins no.159-iron 1 tab PO DAILY 05/19/24 06/12/25 fumarate 28 mg-folic acid 800 mcg tablet ( Vitamin) lidocaine 5 % topical ointment 1 applic topical QID IL N pain #50 05/17/25 06/12/25 grams calcium carbonate 500 mg PO QID PRN heartburn 06/12/25 06/12/25 acetaminophen 500 mg tablet 1,000 mg (2 x 500 mg) PO Q 8HR PRN 06/13/25 (Tylenol Extra Strength) Mild Pain Or Fever>38c(100.4 f) #30 tabs docusate sodium 100 mg capsule 100 mg PO BID #30 caps 06/13/25 ibuprofen 600 mg tablet 600 mg PO Q6HR PRN Moderate Pain 06/13/25 (Level 4-6) #30 tabs PHYSICAL EXAM AT DISCHARGE Vital Signs: Vital Signs x48h Temp Pulse Resp BP Pulse Ox 06/13/25 08:16 97.9 F 69 18 128/75 99 06/13/25 04:35 97.9 F 64 16 114/74 97 06/13/25 01:33 98.1 F 67 16 120/64 98 LABS 06/12/25 08:30 06/12/25 08:30 Discharge Plan Discharge Patient Disposition: 01 Home, Self Care Prescriptions: New ibuprofen 600 mg Tablet 600 mg PO Q6HR PRN (Reason: Moderate Pain (Level 4-6)) Qty: 30 0RF acetaminophen [Tylenol Extra Strength] 500 mg Tablet 1,000 mg PO Q8HR PRN (Reason: Mild Pain Or Fever>38c(100.4f)) Qty: 30 0RF docusate sodium 100 mg Capsule 100 mg PO BID Qty: 30 0RF Continued calcium carbonate 500 mg calcium (1,250 mg) tablet,chewable 500 mg PO QID PRN (Reason: heartburn) lidocaine 5 % ointment 1 applic topical QID PRN (Reason: pain) Qty: 50 2RF Vitamin 28 mg iron- 800 mcg tablet 1 tab PO DAILY Discontinued (DME) lancets Misc See Rx Instructions .ROUTE .MEDSUPPLY Qty: 200 4RF Rx Instructions: 4 times per day as directed (DME) blood-glucose meter Kit See Rx Instructions .ROUTE .MEDSUPPLY Qty: 1 0RF Rx Instructions: 4 times per day as directed (DME) blood sugar diagnostic Strip See Rx Instructions .ROUTE .MEDSUPPLY Qty: 100 4RF Rx Instructions: 4 times per day via meter as directed Print Language: Irish Patient Instructions: After a Vaginal , : Caring for Yourself Follow-up Care: Aaron Way MD [Primary Care Provider, Family Practice]
[2025-06-13] MEDS: MEASLES,MUMPS & RUBELLA VACC 0.5 ML VIAL SUBQ ONE (13:44)
[2025-06-13 16:34] VITALS: BP 119/74; TEMP 97.7; O2SAT 97
--- NOTE | 2025-06-13 17:02 | Labor Flowsheet ---
Labor Flowsheet Datetime Report Generated by CPN: 06/13/2025 17:02 Datetime: 06/13/2025 16:21 VITAL SIGNS NBP Sys/Brittney/Mean (mmHg): 119 : 74 : 84 Pulse: 74 Datetime: 06/13/2025 11:54 SpO2 (%): 99 Datetime: 06/12/2025 21:00 Stage of : Recovery Datetime: 06/12/2025 18:32 Membranes Ruptured Date/Time: 06/12/2025 15:08 Datetime: 06/12/2025 17:59 LaborFlag: Labor Datetime: 06/12/2025 17:46 STAGE 2 Pushing: Coached on Pushing Pushing Position: Pushing Left Side Pushing Progress: Descent with Pushing Datetime: 06/12/2025 17:45 FHR Baseline Rate : 100 Accelerations: 15X15 Datetime: 06/12/2025 17:41 Temperature (C): 36.7 I/O Interventions: Morales Discontinued Datetime: 06/12/2025 17:40 VAGINAL EXAM Dilatation (cm): 10.0 Station: 1 Exam by: Harriett CNM Datetime: 06/12/2025 17:30 UTERINE ACTIVITY Monitor Mode: External Frequency (min): 2-3 Quality: Strong Duration (sec): 60-130 Pattern: Normal: <= 5 Contractions in 10 Minutes Resting Tone (Palpate): Relaxed ASSESSMENT A Monitor Mode: Telemetry Variability: Moderate 6-25 bpm Decelerations: Variable Category: Category II Datetime: 06/12/2025 16:32 Effacement (%): 100 Datetime: 06/12/2025 16:14 Monitor Interventions for UA: [place] Adjusted Datetime: 06/12/2025 16:08 PAIN Pain Scale: 5 Pain Goal: 7 Datetime: 06/12/2025 16:06 Patient Position/Activity: High Fowlers Patient Care Comments: throne Datetime: 06/12/2025 16:00 Contraction Comments: occassional coupling Datetime: 06/12/2025 15:08 Membrane Status: Ruptured Membranes Rupture Method: Artificial Amniotic Fluid Color: Clear Amniotic Fluid Amount: Moderate Amniotic Fluid Odor: None Datetime: 06/12/2025 14:54 Epidural Procedure Other: Pump Started Datetime: 06/12/2025 14:46 Epidural Procedure: Test Dose Datetime: 06/12/2025 14:30 PROCEDURE TIME OUT Procedure Verify: Correct Patient Identity; Correct Side and Site are Marked; Accurate Procedure Consent Form; Agreement on Procedure to be Done; Correct Patient Position ANESTHESIA Anesthesia Plans: Epidural Epidural Positioning: Sitting Anesthesia Comments: Jimbo Weems @ bedside. Patient consented for epidural. Datetime: 06/12/2025 14:10 Pain Coping: Breathing Through Contractions; Requesting Pain Medication or Epidural Datetime: 06/12/2025 13:56 Comments: Mom jusdt went from being in bed to up by bed Datetime: 06/12/2025 13:24 Communication Comments: reviewed strip with provider Datetime: 06/12/2025 13:00 Actions for Decelerations: Side to Side; Blood Pressure; Provider Notified Datetime: 06/12/2025 12:54 Provider Reviewed Strip: Yes COMMUNICATION Communication: Provider at Bedside Provider Notified (Name): Burckhardt CNM Datetime: 06/12/2025 11:15 PATIENT CARE IV/Blood Work: IV Bolus Started Datetime: 06/12/2025 09:30 FHR Baseline Changes: No Baseline Change Datetime: 06/12/2025 09:22 MEDICATIONS Cervical Ripening Agents: Cytotec @
== END 2025-06-13 17:01 | disposition home or self-care (01) | DRG 807 ==
LOC: WFO 07:56 → FBP 07:58
PROVIDERS: ADMIT Nurse Practitioner; ATTEND Nurse Practitioner
DX: O69.81X0 Labor and delivery complicated by cord around neck, without compression, not applicable or unspecified; O24.420 Gestational diabetes mellitus in childbirth, diet controlled; Z3A.39 39 weeks gestation of pregnancy; O70.0 First degree perineal laceration during delivery; Z87.891 Personal history of nicotine dependence; O76 Abnormality in fetal heart rate and rhythm complicating labor and delivery; Z37.0 Single live birth